=== PATIENT | male | born 1945 | race Two or more races ===

== ENCOUNTER 2022-06-13 08:20 | Inpatient (IN) | payer OTHER ==
[~2022-06-13] VITALS: Ht 167.6 cm; Wt 64.7 kg
[~2022-06-13 08:20] MED LIST: ASPI81CH59 PO; FINE10TA PO; METF-372 PO; METO-6 PO; MULT-1056 PO
[2022-06-13] MEDS ORDERED: CIPROFLOXACIN 400MG/200ML 200 ML IV ONE ×2 (10:35→11:11)
[2022-06-13] MEDS ORDERED: GLYCOPYRROLATE 0.2 MG/ML 1ML VIAL ONE (11:04)
[2022-06-13] MEDS ORDERED: LIDOCAINE 2% (LOCAL ANESTH.) PF 5ml SDV ONE (11:04)
[2022-06-13] MEDS ORDERED: PROPOFOL 10 MG/ML 20 ML IV ONE (11:04)
[2022-06-13] MEDS ORDERED: ONDANSETRON HCL 4 MG/2 ML VIAL ONE (11:04)
[2022-06-13] MEDS ORDERED: DexAMETHasone SOD PHOS 10MG/1ML VIAL INJ ONE (11:04)
[2022-06-13] MEDS ORDERED: KETOROLAC TROMETH 30 MG/ML 1ML VIAL ONE (11:04)
[2022-06-13] MEDS ORDERED: SODIUM CHLORIDE LOCK 10 ML ONE (11:25)
[2022-06-13] MEDS ORDERED: ePHEDrine SULFATE 50 MG/ML AMP ONE (11:25)
[2022-06-13] MEDS ORDERED: fentaNYL CITRATE 100 MCG/2 ML VL ONE (11:47)
[2022-06-13] MEDS ORDERED: METHYLENE BLUE 0.5% 5MG/ML 10ml AMP IV ONE (12:07)
[2022-06-13] MEDS ORDERED: NITROGLYCERIN 0.4 MG SL TAB SL PRN (12:45)
[2022-06-13] MEDS ORDERED: MORPHINE SULFATE INJ 2 MG/ml SYRG IV PRN (12:45)
[2022-06-13] MEDS ORDERED: fentaNYL CITRATE 100 MCG/2 ML VL IV PRN (13:00)
[2022-06-13] MEDS ORDERED: hydrALAZINE HCL 20 MG/ML VL IV PRN (13:00)
[2022-06-13] MEDS ORDERED: FLUMAZENIL 0.1 MG/ML INJ 10ML MDV IV PRN (13:00)
[2022-06-13] MEDS ORDERED: NALOXONE HCL 0.4 MG/ML VIAL IV PRN (13:00)
[2022-06-13] MEDS ORDERED: ONDANSETRON HCL 4 MG/2 ML VIAL IV PRN (13:00)
[2022-06-13] MEDS ORDERED: ePHEDrine SULFATE 50 MG/ML AMP IV PRN (13:00)
[2022-06-13] MEDS ORDERED: HYDROmorphone HCL 2 MG/ML VL/or syr IV PRN (13:00)
[2022-06-13] MEDS ORDERED: LABETALOL HCL 5 MG/ML 4ML SYRINGE IV PRN (13:00)
[2022-06-13 13:33] LABS: Calcium 8.6 mg/dL (8.5-10.1); Potassium 4.8 mmol/L (3.5-5.1)
[2022-06-13 13:36] LABS: BUN/Creatinine Ratio 23.2
[2022-06-13 16:51] VITALS: BP 125/59
[2022-06-13 23:17] VITALS: BP 143/77
[2022-06-14] VITALS (9 sets, daily range): BP systolic 124–192; BP diastolic 64–103
[2022-06-14 06:17] LABS: Basophils # (auto) 0 10 ^3/uL (0-0.2); Basophils % (auto) 0.1 % (0.0-2.0); Eosinophils # (auto) 0 10 ^3/uL (0-0.8); Hematocrit 40.6 % (41.0-53.0); Hemoglobin 13.3 g/dL (13.5-17.5); Lymphocytes # (auto) 0.7 10 ^3/uL (0.4-5.4); Lymphocytes % (auto) 7.5 % (10.0-50.0); Mean Corpuscular Hemoglobin 28.7 pg (28.0-32.0); Mean Corpuscular Hgb Conc. 32.7 g/dL (32.0-36.0); Mean Corpuscular Volume 87.6 fL (80.0-100.0); Monocytes # (auto) 0.8 10 ^3/uL (0-1.3); Monocytes % (auto) 9.4 % (0.0-12.0); Neutrophils # (auto) 7.4 10 ^3/uL (1.6-8.6); Red Blood Cells 4.63 10^6/uL (4.5-5.90); Red Cell Distribution Width 15.3 % (11.8-14.3); White Blood Cell 8.9 10^3/uL (4.4-10.8)
[2022-06-14 06:28] LABS: INR 1.07 (0.9-1.15)
[2022-06-14] MEDS ORDERED: MIDAZOLAM HCL 2MG/2ML 2ml VIAL (1mg/ml) ONE (12:58)
[2022-06-14] MEDS ORDERED: fentaNYL CITRATE 100 MCG/2 ML VL ONE (12:58)
[2022-06-14] MEDS ORDERED: LIDOCAINE 2%HCL (LOCAL ANESTH.) INJ 10ml MDV ONE (13:04)
[2022-06-14] MEDS ORDERED: IOHEXOL 350 MG/ML 100ML IJ ONE (13:06)
[2022-06-14] MEDS: HYDROcodone-ACET 5/325MG TAB PO PRN (22:29)
[2022-06-15 00:35] VITALS: BP 161/88
[2022-06-15] MEDS: HYDROcodone-ACET 5/325MG TAB PO PRN ×3 (04:25→22:37)
[2022-06-15 05:00] VITALS: BP 156/89
[2022-06-15 08:33] VITALS: BP 173/89
[2022-06-15] MEDS ORDERED: METOPROLOL SUCCINATE XL 50 MG TAB PO ONE (12:15)
[2022-06-15 13:00] VITALS: BP 174/93
[2022-06-15 13:45] LABS: Mean Corpuscular Hemoglobin 30.2 pg (28.0-32.0); Mean Corpuscular Hgb Conc. 34.8 g/dL (32.0-36.0); Mean Corpuscular Volume 86.7 fL (80.0-100.0); Red Blood Cells 4.96 10^6/uL (4.5-5.90); Red Cell Distribution Width 15.2 % (11.8-14.3); White Blood Cell 7.5 10^3/uL (4.4-10.8)
[2022-06-15 13:50] LABS: Basophils % (manual) 0 (0.0-2.0); Blast Cells 0; Eosinophils % (manual) 0 (0-7); Metamyelocytes % 0; Myelocytes % 0; Promyelocytes % 0; Reactive Lymphocytes 0
[2022-06-15 14:05] LABS: Albumin 3.8 g/dL (3.4-5.0); BUN/Creatinine Ratio 22.4; Calcium 9.5 mg/dL (8.5-10.1); Potassium 3.7 mmol/L (3.5-5.1)
[2022-06-15 14:08] LABS: Bilirubin, Total 0.9 mg/dL (0.2-1.0); Total Protein 7.9 g/dL (6.4-8.2)
[2022-06-15 16:33] VITALS: BP 115/71
[2022-06-15 17:45] LABS: Band Neutrophils % (manual) 1; Lymphocytes % (manual) 18 (10.0-50.0); Monocytes % (manual) 10 (0-12)
[2022-06-15 22:00] VITALS: BP 145/78
[2022-06-16 05:00] VITALS: BP 155/83
[2022-06-16 09:00] VITALS: BP 158/92
[2022-06-16] MEDS: METOPROLOL SUCCINATE XL 50 MG TAB PO SCH (11:13)
[2022-06-16 13:00] VITALS: BP 161/89
[2022-06-16] MEDS: HYDROcodone-ACET 5/325MG TAB PO PRN ×2 (14:03→21:41)
[2022-06-16] MEDS ORDERED: DEXTROSE (50%) 50ML SYRG IV PRN (16:15)
[2022-06-16 16:54] LABS: Hematocrit 38.3 % (41.0-53.0); Hemoglobin 13.2 g/dL (13.5-17.5); Mean Corpuscular Hemoglobin 29.9 pg (28.0-32.0); Mean Corpuscular Hgb Conc. 34.5 g/dL (32.0-36.0); Mean Corpuscular Volume 86.7 fL (80.0-100.0); Red Blood Cells 4.42 10^6/uL (4.5-5.90); Red Cell Distribution Width 15.6 % (11.8-14.3); White Blood Cell 6.3 10^3/uL (4.4-10.8)
[2022-06-16 17:00] VITALS: BP 143/79
[2022-06-16 17:06] LABS: Band Neutrophils % (manual) 0; Basophils % (manual) 0 (0.0-2.0); Blast Cells 0; Metamyelocytes % 0; Myelocytes % 0; Promyelocytes % 0; Reactive Lymphocytes 0
[2022-06-16 17:17] LABS: BUN/Creatinine Ratio 16.9; Calcium 8.8 mg/dL (8.5-10.1)
[2022-06-16] MEDS: ACCU-CHEK COMFORT CURVE STRIP VI SCH ×2 (17:20→21:31)
[2022-06-16] MEDS: InsuLIN REG 1unit/0.01ml Soln (100units/ml) SC SCH ×2 (17:20→21:34)
[2022-06-16 17:39] LABS: Eosinophils % (manual) 1 (0-7); Lymphocytes % (manual) 12 (10.0-50.0); Monocytes % (manual) 9 (0-12)
[2022-06-16] MEDS: metFORMIN HYDROCHLORIDE 500 MG TAB PO SCH (18:40)
[2022-06-16 22:00] VITALS: BP 140/71
[2022-06-17 05:00] VITALS: BP 141/83
[2022-06-17] MEDS: ACCU-CHEK COMFORT CURVE STRIP VI SCH ×4 (06:32→21:25)
[2022-06-17] MEDS: InsuLIN REG 1unit/0.01ml Soln (100units/ml) SC SCH ×5 (06:32→21:26)
[2022-06-17 09:32] VITALS: BP 116/71
[2022-06-17] MEDS: metFORMIN HYDROCHLORIDE 500 MG TAB PO SCH ×2 (10:51→17:55)
[2022-06-17] MEDS: METOPROLOL SUCCINATE XL 50 MG TAB PO SCH (10:52)
[2022-06-17 12:35] VITALS: BP 138/74
[2022-06-17] MEDS: HYDROcodone-ACET 5/325MG TAB PO PRN ×2 (13:50→21:52)
[2022-06-17 16:37] VITALS: BP 137/72
[2022-06-17 22:00] VITALS: BP 132/67
[2022-06-18] MEDS: HYDROcodone-ACET 5/325MG TAB PO PRN (03:51)
[2022-06-18 05:00] VITALS: BP 126/62
[2022-06-18] MEDS: InsuLIN REG 1unit/0.01ml Soln (100units/ml) SC SCH ×2 (06:45→13:10)
[2022-06-18] MEDS: ACCU-CHEK COMFORT CURVE STRIP VI SCH ×2 (06:45→12:10)
[2022-06-18 09:26] VITALS: BP 159/64
[2022-06-18] MEDS: metFORMIN HYDROCHLORIDE 500 MG TAB PO SCH (09:34)
[2022-06-18] MEDS: METOPROLOL SUCCINATE XL 50 MG TAB PO SCH (09:35)
[2022-06-18 12:35] VITALS: BP 139/67
[2022-06-18] MEDS ORDERED: SODIUM CHLORIDE 0.9% 1,000 ML IV ONE (13:45)
[2022-06-18 16:27] VITALS: BP 159/64
== END 2022-06-18 17:15 | disposition home health service (06) | DRG 669 ==
LOC: SUR 08:20 → OVERFLOW 12:42 → EAST 16:07
PROVIDERS: ADMIT Urology; ATTEND Urology
PROC: 0TBB8ZZ Excision of Bladder, Via Natural or Artificial Opening Endoscopic (ICD-10-PCS; principal; 2022-06-13 11:13)
PROC: 0T773DZ Dilation of Left Ureter with Intraluminal Device, Percutaneous Approach (ICD-10-PCS; 2022-06-14)
DX: C67.9 Malignant neoplasm of bladder, unspecified (principal); N13.30 Unspecified hydronephrosis; R31.0 Gross hematuria; N18.9 Chronic kidney disease, unspecified; R79.89 Other specified abnormal findings of blood chemistry; Z20.822 Contact with and (suspected) exposure to COVID-19; N20.0 Calculus of kidney
CPT/HCPCS: 36415; 50432; 74176; 74425; 76942; 80048; 80053; 82962; 85007; 85025; 85027; 85610; 85730; 99152; 99153; C2625; G0378; J1100; J1815; J1885; J2001; J2250; J2405; J2704

== ENCOUNTER 2022-07-20 09:29 | Inpatient (IN) | payer OTHER ==
[~2022-07-20] VITALS: Ht 165.1 cm; Wt 65.0 kg
[~2022-07-20 09:29] MED LIST changes: -ASPI81CH59 PO
[2022-07-20 11:27] LABS: Hematocrit 34.3 % (41.0-53.0); Hemoglobin 11.3 g/dL (13.5-17.5); Mean Corpuscular Hgb Conc. 32.9 g/dL (32.0-36.0); Mean Corpuscular Volume 88.2 fL (80.0-100.0); Red Blood Cells 3.88 10^6/uL (4.5-5.90); Red Cell Distribution Width 15.9 % (11.8-14.3)
[2022-07-20 11:33] LABS: Basophils % (manual) 0 (0.0-2.0); Blast Cells 0; Metamyelocytes % 0; Myelocytes % 0; Promyelocytes % 0; Reactive Lymphocytes 0
[2022-07-20 11:53] LABS: Calcium 8.6 mg/dL (8.5-10.1); Potassium 4.9 mmol/L (3.5-5.1)
[2022-07-20 11:59] LABS: Albumin 3.6 g/dL (3.4-5.0); BUN/Creatinine Ratio 18.1; Bilirubin, Total 0.4 mg/dL (0.2-1.0); Total Protein 7.4 g/dL (6.4-8.2)
[2022-07-20 12:01] LABS: Band Neutrophils % (manual) 13; Eosinophils % (manual) 1 (0-7); Lymphocytes % (manual) 23 (10.0-50.0); Monocytes % (manual) 11 (0-12)
[2022-07-20] MEDS ORDERED: NITROGLYCERIN 0.4 MG SL TAB SL PRN (16:15)
[2022-07-20] MEDS ORDERED: MORPHINE SULFATE INJ 2 MG/ml SYRG IV PRN (16:15)
[2022-07-20] MEDS ORDERED: SODIUM CHLORIDE 0.9% 1,000 ML IV SCH (16:30)
[2022-07-20] MEDS: SODIUM CHLORIDE 0.9% 1,000 ML IV SCH (16:33)
[2022-07-20] MEDS ORDERED: OXYCODONE W/ ACETAMINOPHEN 5/325MG TABLET PO PRN (21:00)
[2022-07-20] MEDS ORDERED: ROSU1TAB15 PO (22:41)
[2022-07-21 05:00] VITALS: BP 134/69
[2022-07-21 06:37] LABS: Hematocrit 33.3 % (41.0-53.0); Red Blood Cells 3.78 10^6/uL (4.5-5.90); Red Cell Distribution Width 15.9 % (11.8-14.3); White Blood Cell 3.9 10^3/uL (4.4-10.8)
[2022-07-21 06:47] LABS: Basophils % (manual) 0 (0.0-2.0); Blast Cells 0; Metamyelocytes % 0; Myelocytes % 0; Promyelocytes % 0; Reactive Lymphocytes 0
[2022-07-21] MEDS: SODIUM CHLORIDE 0.9% 1,000 ML IV SCH ×3 (07:05→08:51)
[2022-07-21 07:21] LABS: Potassium 4.4 mmol/L (3.5-5.1)
[2022-07-21 07:26] LABS: BUN/Creatinine Ratio 19.5; Calcium 8.3 mg/dL (8.5-10.1)
[2022-07-21 08:00] VITALS: BP 160/72
[2022-07-21 08:47] VITALS: BP 160/72
[2022-07-21 09:16] LABS: Band Neutrophils % (manual) 6; Lymphocytes % (manual) 18 (10.0-50.0)
[2022-07-21 09:17] LABS: Eosinophils % (manual) 2 (0-7); Monocytes % (manual) 22 (0-12)
[2022-07-21] MEDS ORDERED: POLYETHYLENE GLYCOL 17 GM PWDR PO SCH (10:00)
[2022-07-21] MEDS ORDERED: DOCUSATE SOD 100 MG CAP PO SCH (10:00)
[2022-07-21] MEDS ORDERED: DEXTROSE (50%) 50ML SYRG IV PRN (10:15)
[2022-07-21] MEDS: ACCU-CHEK COMFORT CURVE STRIP VI SCH ×2 (11:30→16:34)
[2022-07-21] MEDS: InsuLIN REG 1unit/0.01ml Soln (100units/ml) SC SCH ×2 (11:30→16:34)
[2022-07-21 13:00] VITALS: BP 153/75
[2022-07-21 16:51] VITALS: BP 169/92
[2022-07-21 17:06] VITALS: BP 144/88
[2022-07-21] MEDS ORDERED: SENNA 8.6 MG TAB PO SCH (22:00)
[2022-07-22] MEDS ORDERED: METOPROLOL SUCCINATE XL 50 MG TAB PO SCH (10:00)
[2022-07-22] MEDS ORDERED: MULTIPLE VITAMIN TAB PO SCH (10:00)
== END 2022-07-21 17:30 | disposition home health service (06) | DRG 699 ==
LOC: ER 09:29 → OVERFLOW 16:12 → CENTRAL 21:50
PROVIDERS: ADMIT Internal Medicine; ATTEND Internal Medicine
DX: T83.022A Displacement of nephrostomy catheter, initial encounter (principal); N17.9 Acute kidney failure, unspecified; Y83.8 Other surgical procedures as the cause of abnormal reaction of the patient, or of later complication, without mention of misadventure at the time of the procedure; Z20.822 Contact with and (suspected) exposure to COVID-19; E11.22 Type 2 diabetes mellitus with diabetic chronic kidney disease; F17.210 Nicotine dependence, cigarettes, uncomplicated; I12.9 Hypertensive chronic kidney disease with stage 1 through stage 4 chronic kidney disease, or unspecified chronic kidney disease; K59.00 Constipation, unspecified; N18.32 Chronic kidney disease, stage 3b; N40.0 Benign prostatic hyperplasia without lower urinary tract symptoms; Z82.49 Family history of ischemic heart disease and other diseases of the circulatory system; Y92.89 Other specified places as the place of occurrence of the external cause; Z83.3 Family history of diabetes mellitus; Z85.51 Personal history of malignant neoplasm of bladder; Z90.79 Acquired absence of other genital organ(s)
CPT/HCPCS: 36415; 74176; 76775; 80048; 80053; 82962; 85007; 85027; 87426; G0378

== ENCOUNTER 2022-10-24 06:21 | Inpatient (IN) | payer OTHER ==
[~2022-10-24] VITALS: Ht 167.6 cm; Wt 69.1 kg
[~2022-10-24 06:21] MED LIST changes: +ROSU1TAB15 PO
[2022-10-24] MEDS ORDERED: PROPOFOL 10 MG/ML 20 ML IV ONE ×2 (06:54→09:21)
[2022-10-24] MEDS ORDERED: ONDANSETRON HCL 4 MG/2 ML VIAL ONE ×2 (06:55→08:01)
[2022-10-24] MEDS ORDERED: KETOROLAC TROMETH 30 MG/ML 1ML VIAL ONE (06:55)
[2022-10-24] MEDS ORDERED: LIDOCAINE 2% (LOCAL ANESTH.) PF 5ml SDV ONE ×2 (06:55→08:01)
[2022-10-24] MEDS ORDERED: GLYCOPYRROLATE 0.2 MG/ML 1ML VIAL ONE ×2 (06:55→09:10)
[2022-10-24] MEDS ORDERED: DexAMETHasone SOD PHOS 10MG/1ML VIAL INJ ONE (06:55)
[2022-10-24] MEDS ORDERED: fentaNYL CITRATE 100 MCG/2 ML VL ONE ×2 (06:57→07:41)
[2022-10-24] MEDS ORDERED: mitoMYcin 40 MG in STERILE WATER 60 ML IS ONE (07:00)
[2022-10-24] MEDS ORDERED: MITOMYCIN IS ONE ×4 (07:30)
[2022-10-24] MEDS ORDERED: STERILE WATER IS ONE ×4 (07:30)
[2022-10-24] MEDS ORDERED: MIDAZOLAM HCL 2MG/2ML 2ml VIAL (1mg/ml) ONE (07:41)
[2022-10-24] MEDS ORDERED: CIPROFLOXACIN 400MG/200ML 200 ML IV ONE (08:02)
[2022-10-24] MEDS ORDERED: ONDANSETRON HCL 4 MG/2 ML VIAL IV PRN (09:00)
[2022-10-24] MEDS ORDERED: HYDROmorphone HCL 2 MG/ML VL/or syr IV PRN ×2 (09:00)
[2022-10-24] MEDS ORDERED: NEOSTIGMINE 1 MG/ML INJ (10mg/10ML VIAL) ONE (09:10)
[2022-10-24] MEDS ORDERED: ALBUTEROL SULF 2.5 MG/0.5ML(0.5%) NEB SOLN NEB ONE (11:30)
[2022-10-24] MEDS ORDERED: ALBUTEROL SULF 2.5 MG/0.5ML(0.5%) NEB SOLN ONE (12:09)
[2022-10-24 17:42] VITALS: BP 129/56
[2022-10-24] MEDS ORDERED: ACETAMINOPHEN 325 MG TAB PO PRN (17:45)
[2022-10-24 20:00] VITALS: BP 158/62
[2022-10-24] MEDS: MORPHINE SULFATE INJ 2 MG/ml SYRG IV PRN (21:17)
[2022-10-24 22:00] VITALS: BP 158/62
[2022-10-25 05:00] VITALS: BP 105/42
[2022-10-25 09:00] VITALS: BP 98/50
[2022-10-25 11:29] LABS: Hematocrit 25.6 % (41.0-53.0); Hemoglobin 8.5 g/dL (13.5-17.5); Mean Corpuscular Hemoglobin 29.4 pg (28.0-32.0); Mean Corpuscular Hgb Conc. 33.3 g/dL (32.0-36.0); Mean Corpuscular Volume 88.4 fL (80.0-100.0); Red Blood Cells 2.89 10^6/uL (4.5-5.90)
[2022-10-25 11:33] LABS: Basophils % (manual) 0 (0.0-2.0); Blast Cells 0; Eosinophils % (manual) 0 (0-7); Promyelocytes % 0; Reactive Lymphocytes 0
[2022-10-25 11:40] LABS: Calcium 8.3 mg/dL (8.5-10.1); Potassium 4.8 mmol/L (3.5-5.1)
[2022-10-25 11:42] LABS: BUN/Creatinine Ratio 17.5 (10.0-20.0)
[2022-10-25 11:49] LABS: Band Neutrophils % (manual) 2; Lymphocytes % (manual) 13 (10.0-50.0); Metamyelocytes % 2; Monocytes % (manual) 16 (0-12); Myelocytes % 1
[2022-10-25 13:00] VITALS: BP 117/52
[2022-10-25] MEDS ORDERED: BISACODYL 10 MG RECT SUPP PR PRN (14:15)
[2022-10-25] MEDS ORDERED: DEXTROSE (50%) 50ML SYRG IV PRN (14:15)
[2022-10-25 17:00] VITALS: BP 115/57
[2022-10-25] MEDS: InsuLIN REG 1unit/0.01ml Soln (100units/ml) SC SCH (17:00)
[2022-10-25] MEDS: ACCU-CHEK COMFORT CURVE STRIP VI SCH (17:08)
[2022-10-25] MEDS: SENNA 8.6 MG TAB PO SCH (21:53)
[2022-10-25 22:00] VITALS: BP 90/56
[2022-10-25] MEDS ORDERED: metFORMIN HYDROCHLORIDE 500 MG TAB PO ONE ×2 (22:15→22:30)
[2022-10-26] MEDS: ACCU-CHEK COMFORT CURVE STRIP VI SCH ×5 (00:12→23:56)
[2022-10-26] MEDS: InsuLIN REG 1unit/0.01ml Soln (100units/ml) SC SCH ×4 (00:12→17:00)
[2022-10-26] MEDS: SODIUM CHLORIDE 0.9% 1,000 ML IV SCH ×2 (00:53→09:35)
[2022-10-26 05:03] VITALS: BP 127/63
[2022-10-26 05:38] LABS: Mean Corpuscular Hemoglobin 29.9 pg (28.0-32.0); Red Blood Cells 2.67 10^6/uL (4.5-5.90); White Blood Cell 5.8 10^3/uL (4.4-10.8)
[2022-10-26 05:40] LABS: Hematocrit 23.7 % (41.0-53.0); Mean Corpuscular Hgb Conc. 33.7 g/dL (32.0-36.0); Mean Corpuscular Volume 88.7 fL (80.0-100.0); Red Cell Distribution Width 16.3 % (11.8-14.3)
[2022-10-26 05:53] LABS: Potassium 3.8 mmol/L (3.5-5.1)
[2022-10-26 05:58] LABS: Basophils % (manual) 0 (0.0-2.0); Blast Cells 0; Metamyelocytes % 0; Myelocytes % 0; Promyelocytes % 0; Reactive Lymphocytes 0
[2022-10-26 06:01] LABS: BUN/Creatinine Ratio 15.7 (10.0-20.0); Calcium 8.4 mg/dL (8.5-10.1)
[2022-10-26 06:48] LABS: Band Neutrophils % (manual) 2; Eosinophils % (manual) 1 (0-7); Lymphocytes % (manual) 19 (10.0-50.0); Monocytes % (manual) 16 (0-12)
[2022-10-26 09:00] VITALS: BP_SYST 121; BP_SYST 127; BP_DIAS 63
[2022-10-26 13:00] VITALS: BP 122/59
[2022-10-26 16:45] VITALS: BP 119/62
[2022-10-26] MEDS ORDERED: POLYETHYLENE GLYCOL 17 GM PWDR PO PRN (19:00)
[2022-10-26 22:00] VITALS: BP 129/55
[2022-10-26] MEDS: SENNA 8.6 MG TAB PO SCH (23:56)
[2022-10-27] MEDS: SODIUM CHLORIDE 0.9% 1,000 ML IV SCH ×2 (00:02→12:15)
[2022-10-27] MEDS: InsuLIN REG 1unit/0.01ml Soln (100units/ml) SC SCH ×4 (00:03→17:14)
[2022-10-27] MEDS: MORPHINE SULFATE INJ 2 MG/ml SYRG IV PRN (00:37)
[2022-10-27 05:00] VITALS: BP 133/60
[2022-10-27 05:33] LABS: Hematocrit 23.4 % (41.0-53.0); Hemoglobin 7.9 g/dL (13.5-17.5); Mean Corpuscular Hemoglobin 29.8 pg (28.0-32.0); Mean Corpuscular Volume 87.8 fL (80.0-100.0); Red Blood Cells 2.66 10^6/uL (4.5-5.90); Red Cell Distribution Width 15.8 % (11.8-14.3); White Blood Cell 5.1 10^3/uL (4.4-10.8)
[2022-10-27 05:39] LABS: Potassium 3.8 mmol/L (3.5-5.1)
[2022-10-27 05:48] LABS: BUN/Creatinine Ratio 15.3 (10.0-20.0); Calcium 8.5 mg/dL (8.5-10.1)
[2022-10-27 05:51] LABS: Band Neutrophils % (manual) 0; Basophils % (manual) 0 (0.0-2.0); Blast Cells 0; Eosinophils % (manual) 0 (0-7); Metamyelocytes % 0; Myelocytes % 0; Promyelocytes % 0; Reactive Lymphocytes 0
[2022-10-27] MEDS: ACCU-CHEK COMFORT CURVE STRIP VI SCH ×3 (06:52→17:00)
[2022-10-27 07:52] LABS: Lymphocytes % (manual) 23 (10.0-50.0); Monocytes % (manual) 12 (0-12)
[2022-10-27 09:00] VITALS: BP 136/76
[2022-10-27 13:00] VITALS: BP 137/72
[2022-10-27 17:00] VITALS: BP 150/72
[2022-10-27 17:26] VITALS: BP 137/72
[2022-10-27] MEDS ORDERED: ROCURONIUM 10MG/ML 10ML VIAL IV ONE (18:57)
== END 2022-10-27 18:58 | disposition home health service (06) | DRG 669 ==
LOC: SUR 06:21 → OVERFLOW 15:50 → CENTRAL 16:41
PROVIDERS: ADMIT Urology; ATTEND Urology
PROC: 0TBC8ZZ Excision of Bladder Neck, Via Natural or Artificial Opening Endoscopic (ICD-10-PCS; principal; 2022-10-24 08:06)
DX: D49.4 Neoplasm of unspecified behavior of bladder (principal); N17.9 Acute kidney failure, unspecified; N35.919 Unspecified urethral stricture, male, unspecified site; E11.22 Type 2 diabetes mellitus with diabetic chronic kidney disease; N18.9 Chronic kidney disease, unspecified; R31.0 Gross hematuria; Z85.51 Personal history of malignant neoplasm of bladder; D63.8 Anemia in other chronic diseases classified elsewhere; D53.9 Nutritional anemia, unspecified
CPT/HCPCS: 36415; 76775; 80048; 82962; 85007; 85027; 94640; 97163; G0378; J1100; J1815; J1885; J2001; J2250; J2405; J2704; J9280

== ENCOUNTER 2022-12-02 12:59 | Inpatient (IN) | payer OTHER ==
[~2022-12-02] VITALS: Ht 172.7 cm; Wt 63.0 kg
[2022-12-02] VITALS (16 sets, daily range): BP systolic 118–154; BP diastolic 62–78; PULSE 48–87; RESP 16–22; TEMP 36.2; O2SAT 97–100
[2022-12-02] MEDS ORDERED: ETOMIDATE (2MG/ML) 20ML VIAL IV ONE ×2 (13:08→13:30)
[2022-12-02] MEDS ORDERED: MIDAZOLAM DRIP 50 mg/50mL 50 ML IV ONE (13:09)
[2022-12-02] MEDS ORDERED: SUCCINYLCHOLINE CHLORIDE 20 MG/ML 10ML VIAL IV ONE ×2 (13:09→13:30)
[2022-12-02] MEDS ORDERED: NOREPINEPHRINE 8 MG/250ML KIT 250 ML IV ONE (13:09)
[2022-12-02] MEDS ORDERED: PROPOFOL 0 ML IV ONE (13:48)
[2022-12-02] MEDS ORDERED: DOPamine 1600MCG/ML D5W 250 ML IV ONE (13:48)
[2022-12-02] MEDS: DOPamine 1600MCG/ML D5W 250 ML IV SCH (13:59)
[2022-12-02 14:16] LABS: INR 1.15 (0.9-1.15); Partial Thromboplastin Time 32.7 SEC (24.5-34.5)
[2022-12-02 14:17] LABS: Albumin 3.7 g/dL (3.4-5.0); Calcium 8.4 mg/dL (8.5-10.1); Magnesium 2.5 mg/dL (1.6-2.6); Potassium 4.3 mmol/L (3.5-5.1)
[2022-12-02 14:20] LABS: BUN/Creatinine Ratio 13.2 (10.0-20.0); Bilirubin, Total 0.8 mg/dL (0.2-1.0); Total Protein 7.8 g/dL (6.4-8.2)
[2022-12-02 14:23] LABS: Base Excess -8.4 mmol/L (-2.0-2.0)
[2022-12-02] MEDS ORDERED: FUROSEMIDE 40 MG/4 ML VIAL IV ONE (15:15)
[2022-12-02 16:52] LABS: Hematocrit 34.4 % (41.0-53.0); Hemoglobin 10.8 g/dL (13.5-17.5); Mean Corpuscular Hemoglobin 28.6 pg (28.0-32.0); Mean Corpuscular Hgb Conc. 31.3 g/dL (32.0-36.0); Mean Corpuscular Volume 91.1 fL (80.0-100.0); Red Blood Cells 3.77 10^6/uL (4.5-5.90); Red Cell Distribution Width 18.5 % (11.8-14.3); White Blood Cell 5.8 10^3/uL (4.4-10.8)
[2022-12-02 17:02] LABS: Basophils % (manual) 0 (0.0-2.0); Blast Cells 0; Eosinophils % (manual) 0 (0-7); Metamyelocytes % 0; Myelocytes % 0; Promyelocytes % 0; Reactive Lymphocytes 0
[2022-12-02 18:35] LABS: Urine Bacteria NONE SEEN /hpf (None Seen); Urine Blood 3+ /uL (Negative); Urine Clarity HAZY (Clear); Urine Color Orange (Yellow); Urine Protein, UAD 3+ (Negative); Urine Specific Gravity 1.015 (1.001-1.035); Urine Urobilinogen Normal (Negative); Urine WBC 338 /hpf (0 - 3)
[2022-12-02] MEDS ORDERED: MORPHINE SULFATE INJ 2 MG/ml SYRG IV PRN (18:45)
[2022-12-02] MEDS ORDERED: NITROGLYCERIN 0.4 MG SL TAB SL PRN (18:45)
[2022-12-02 18:53] LABS: Anisocytosis Slight; Band Neutrophils % (manual) 5; Lymphocytes % (manual) 13 (10.0-50.0); Monocytes % (manual) 15 (0-12); Platelet Estimate Decreased
[2022-12-02 18:54] LABS: Large Platelets FEW
[2022-12-02] MEDS: PROPOFOL 100 ML IV SCH (19:58)
[2022-12-02] MEDS ORDERED: SODIUM BICARBONATE 8.4 % INJ 50ML VIAL IV ONE (20:15)
[2022-12-02 21:28] LABS: COVID19 ANTIGEN SOFIA FIA NEGATIVE (NEGATIVE); Rapid Influenza A Negative (Negative); Rapid Influenza B Negative (Negative)
[2022-12-03] VITALS (108 sets, daily range): BP systolic 83–216; BP diastolic 38–172; PULSE 51–157; RESP 14–39; TEMP 97.5–100.4; O2SAT 92–100
[2022-12-03] MEDS: MIDAZOLAM DRIP 50 mg/50mL 50 ML IV SCH ×6 (00:07→20:58)
[2022-12-03 04:16] LABS: Basophils # (auto) 0 10 ^3/uL (0-0.2); Eosinophils # (auto) 0 10 ^3/uL (0-0.8); Lymphocytes # (auto) 0.7 10 ^3/uL (0.4-5.4); Monocytes # (auto) 0.9 10 ^3/uL (0-1.3); White Blood Cell 5.3 10^3/uL (4.4-10.8)
[2022-12-03 04:19] LABS: Basophils % (auto) 0.2 % (0.0-2.0); Eosinophils % (auto) 0.2 % (0.0-7.0); Hematocrit 33.5 % (41.0-53.0); Lymphocytes % (auto) 13.5 % (10.0-50.0); Mean Corpuscular Hemoglobin 29.2 pg (28.0-32.0); Mean Corpuscular Volume 88.5 fL (80.0-100.0); Monocytes % (auto) 17.2 % (0.0-12.0); Neutrophils # (auto) 3.6 10 ^3/uL (1.6-8.6); Neutrophils % (auto) 68.9 % (37.0-80.0); Nucleated Red Blood Cells % 0.1 %; Red Blood Cells 3.78 10^6/uL (4.5-5.90); Red Cell Distribution Width 17.9 % (11.8-14.3)
[2022-12-03 04:34] LABS: Albumin 3.4 g/dL (3.4-5.0); Calcium 8.9 mg/dL (8.5-10.1); Potassium 3.6 mmol/L (3.5-5.1)
[2022-12-03 04:39] LABS: BUN/Creatinine Ratio 15.2 (10.0-20.0); Bilirubin, Total 1.1 mg/dL (0.2-1.0); Total Protein 7.2 g/dL (6.4-8.2)
[2022-12-03] MEDS: DOPamine 1600MCG/ML D5W 250 ML IV SCH ×2 (07:32→23:00)
[2022-12-03 07:39] LABS: Base Excess 1.7 mmol/L (-2.0-2.0)
[2022-12-03] MEDS: cefTRIAXone 1GM/50ML D5W 50 ML IV SCH (09:58)
[2022-12-03] MEDS ORDERED: AZITHROMYCIN 500MG/ 250ML 250 ML IV SCH (10:00)
[2022-12-03] MEDS: PROPOFOL 100 ML IV SCH (16:08)
[2022-12-03 16:40] LABS: Urine Bacteria FEW /hpf (None Seen); Urine Blood 3+ /uL (Negative); Urine Clarity CLOUDY (Clear); Urine Color Yellow (Yellow); Urine Hyaline Cast FEW /lpf (0 - 2); Urine Mucus FEW (None Seen); Urine Protein, UAD 2+ (Negative); Urine Specific Gravity 1.016 (1.001-1.035); Urine Urobilinogen Normal (Negative); Urine WBC 1197 /hpf (0 - 3); Urine WBC Clumps PRESENT /hpf (None Seen)
[2022-12-03] MEDS ORDERED: dilTIAZem 25 MG/5 ML VIAL IV ONE (18:00)
[2022-12-03] MEDS ORDERED: DIGOXIN 0.25 MG TAB PO ONE ×2 (18:00→19:00)
[2022-12-03] MEDS ORDERED: AMIODARONE HCL 150 MG in D5W 5% 100 ML IV ONE (18:00)
[2022-12-03] MEDS ORDERED: AMIODARONE 450mg/250ml AE 250 ML IV SCH (18:15)
[2022-12-03] MEDS: PHENYLEPHRINE IV 250 ML IV SCH (18:45)
[2022-12-03] MEDS: DOXYCYCLINE 100MG/250ML 250 ML IV SCH (23:28)
[2022-12-03] MEDS: AMIODARONE 450mg/250ml AE 250 ML IV SCH (23:29)
[2022-12-04] VITALS (105 sets, daily range): BP systolic 76–171; BP diastolic 35–120; PULSE 56–121; RESP 18–20; TEMP 96.4–98.2; O2SAT 94–100
[2022-12-04] MEDS: PHENYLEPHRINE IV 250 ML IV SCH ×3 (00:32→17:13)
[2022-12-04] MEDS: MIDAZOLAM DRIP 50 mg/50mL 50 ML IV SCH ×5 (00:36→22:24)
[2022-12-04] MEDS ORDERED: ATROPINE SULF 1 MG/10ml SYR ONE (00:42)
[2022-12-04] MEDS: PROPOFOL 100 ML IV SCH ×4 (02:46→22:23)
[2022-12-04] MEDS: DOPamine 1600MCG/ML D5W 250 ML IV SCH (03:16)
[2022-12-04 04:17] LABS: Mean Corpuscular Hemoglobin 29.5 pg (28.0-32.0); Mean Corpuscular Volume 88.7 fL (80.0-100.0); Red Cell Distribution Width 17.9 % (11.8-14.3)
[2022-12-04 04:21] LABS: Hematocrit 34.8 % (41.0-53.0); Hemoglobin 11.6 g/dL (13.5-17.5); Mean Corpuscular Hgb Conc. 33.3 g/dL (32.0-36.0); Red Blood Cells 3.92 10^6/uL (4.5-5.90); White Blood Cell 8.4 10^3/uL (4.4-10.8)
[2022-12-04 04:31] LABS: Basophils % (manual) 0 (0.0-2.0); Blast Cells 0; Eosinophils % (manual) 0 (0-7); Metamyelocytes % 0; Myelocytes % 0; Promyelocytes % 0; Reactive Lymphocytes 0
[2022-12-04 04:43] LABS: Potassium 3.3 mmol/L (3.5-5.1)
[2022-12-04 04:46] LABS: Albumin 2.9 g/dL (3.4-5.0); BUN/Creatinine Ratio 14.6 (10.0-20.0); Calcium 8.8 mg/dL (8.5-10.1)
[2022-12-04 04:50] LABS: Bilirubin, Total 0.6 mg/dL (0.2-1.0)
[2022-12-04 05:42] LABS: Band Neutrophils % (manual) 8; Lymphocytes % (manual) 15 (10.0-50.0); Monocytes % (manual) 17 (0-12)
[2022-12-04 05:43] LABS: Anisocytosis Slight; Large Platelets FEW; Ovalocytes FEW; Platelet Estimate Decreased
[2022-12-04] MEDS: DOXYCYCLINE 100MG/250ML 250 ML IV SCH ×2 (06:30→17:30)
[2022-12-04 09:28] LABS: Base Excess 0.2 mmol/L (-2.0-2.0)
[2022-12-04] MEDS: cefTRIAXone 1GM/50ML D5W 50 ML IV SCH (09:34)
[2022-12-04] MEDS ORDERED: DIGOXIN 0.125 MG TAB PO SCH (10:00)
[2022-12-04] MEDS: AMIODARONE 450mg/250ml AE 250 ML IV SCH (15:15)
[2022-12-04] MEDS ORDERED: PANTOPRAZOLE 40 MG/10 ML VIAL INJ IV ONE (18:00)
[2022-12-05] VITALS (110 sets, daily range): BP systolic 79–165; BP diastolic 35–75; PULSE 49–71; RESP 13–24; TEMP 96.6–98.8; O2SAT 90–100
[2022-12-05] MEDS: MIDAZOLAM DRIP 50 mg/50mL 50 ML IV SCH ×4 (02:20→18:39)
[2022-12-05 04:06] LABS: Basophils # (auto) 0 10 ^3/uL (0-0.2); Basophils % (auto) 0.4 % (0.0-2.0); Eosinophils # (auto) 0 10 ^3/uL (0-0.8); Hemoglobin 9.6 g/dL (13.5-17.5); Lymphocytes # (auto) 0.6 10 ^3/uL (0.4-5.4); Nucleated Red Blood Cells % 0.1 %; White Blood Cell 5.7 10^3/uL (4.4-10.8)
[2022-12-05 04:09] LABS: Eosinophils % (auto) 0.3 % (0.0-7.0); Hematocrit 28.5 % (41.0-53.0); Mean Corpuscular Hemoglobin 29.9 pg (28.0-32.0); Mean Corpuscular Hgb Conc. 33.6 g/dL (32.0-36.0); Mean Corpuscular Volume 88.8 fL (80.0-100.0); Neutrophils % (auto) 70.3 % (37.0-80.0); Red Blood Cells 3.21 10^6/uL (4.5-5.90); Red Cell Distribution Width 18.1 % (11.8-14.3)
[2022-12-05 04:17] LABS: Calcium 7.6 mg/dL (8.5-10.1); Potassium 3.1 mmol/L (3.5-5.1)
[2022-12-05 04:21] LABS: BUN/Creatinine Ratio 14.8 (10.0-20.0)
[2022-12-05] MEDS: DOPamine 1600MCG/ML D5W 250 ML IV SCH (05:10)
[2022-12-05] MEDS: PHENYLEPHRINE IV 250 ML IV SCH ×2 (06:00→11:40)
[2022-12-05] MEDS: DOXYCYCLINE 100MG/250ML 250 ML IV SCH ×2 (06:39→18:07)
[2022-12-05] MEDS: PROPOFOL 100 ML IV SCH ×3 (06:50→18:41)
[2022-12-05 07:52] LABS: Base Excess -2.1 mmol/L (-2.0-2.0)
[2022-12-05] MEDS: cefTRIAXone 1GM/50ML D5W 50 ML IV SCH (09:43)
[2022-12-05] MEDS: PANTOPRAZOLE 40 MG/10 ML VIAL INJ IV SCH (09:43)
[2022-12-05 10:10] LABS: INR 1.13 (0.9-1.15); Partial Thromboplastin Time 38.4 SEC (24.5-34.5); Prothrombin Time 11.8 sec (9.3-11.8)
[2022-12-05] MEDS: POTASSIUM CHL 20MEQ/100ML 100 ML IV SCH ×4 (11:58→17:30)
[2022-12-05] MEDS ORDERED: LIDOCAINE 2%HCL (LOCAL ANESTH.) INJ 20ML MDV ONE (15:13)
[2022-12-05] MEDS ORDERED: VANCOMYCIN 1GM/250ML 250 ML IV ONE (15:25)
[2022-12-05] MEDS ORDERED: VANCOMYCIN HCL 1000 MG VL ONE (15:25)
[2022-12-06] VITALS (110 sets, daily range): BP systolic 99–154; BP diastolic 42–63; PULSE 65–68; RESP 13–30; TEMP 97.3–99.3; O2SAT 95–100
[2022-12-06] MEDS: PROPOFOL 100 ML IV SCH ×4 (00:12→17:55)
[2022-12-06] MEDS: MIDAZOLAM DRIP 50 mg/50mL 50 ML IV SCH ×4 (00:29→17:56)
[2022-12-06] MEDS: PHENYLEPHRINE IV 250 ML IV SCH ×4 (01:19→21:00)
[2022-12-06 03:47] LABS: Calcium 8.5 mg/dL (8.5-10.1); Potassium 3.8 mmol/L (3.5-5.1)
[2022-12-06 03:50] LABS: BUN/Creatinine Ratio 13.1 (10.0-20.0)
[2022-12-06 03:56] LABS: INR 1.11 (0.9-1.15); Partial Thromboplastin Time 39.2 SEC (24.5-34.5); Prothrombin Time 11.6 sec (9.3-11.8)
[2022-12-06] MEDS: DOPamine 1600MCG/ML D5W 250 ML IV SCH ×2 (04:21→22:08)
[2022-12-06] MEDS: DOXYCYCLINE 100MG/250ML 250 ML IV SCH ×2 (06:00→17:56)
[2022-12-06 08:11] LABS: Base Excess -3.9 mmol/L (-2.0-2.0)
[2022-12-06 08:27] LABS: Hematocrit 31.6 % (41.0-53.0); Hemoglobin 10.2 g/dL (13.5-17.5); Mean Corpuscular Hgb Conc. 32.3 g/dL (32.0-36.0); Mean Corpuscular Volume 89.9 fL (80.0-100.0); Red Blood Cells 3.52 10^6/uL (4.5-5.90); Red Cell Distribution Width 18.1 % (11.8-14.3)
[2022-12-06 08:30] LABS: Basophils % (manual) 0 (0.0-2.0); Metamyelocytes % 0; Myelocytes % 0
[2022-12-06 08:31] LABS: Blast Cells 0; Promyelocytes % 0; Reactive Lymphocytes 0
[2022-12-06] MEDS: PANTOPRAZOLE 40 MG/10 ML VIAL INJ IV SCH (09:39)
[2022-12-06] MEDS: cefTRIAXone 1GM/50ML D5W 50 ML IV SCH (09:39)
[2022-12-06 09:56] LABS: Anisocytosis Slight; Band Neutrophils % (manual) 12; Eosinophils % (manual) 1 (0-7); Lymphocytes % (manual) 11 (10.0-50.0); Monocytes % (manual) 14 (0-12)
[2022-12-06 09:57] LABS: Platelet Estimate Decreased
[2022-12-06] MEDS: MIDODRINE HCL 10 MG TAB PO SCH ×2 (11:33→18:00)
[2022-12-06] MEDS: ALBUMIN 25% 100 ML IV SCH ×2 (11:34→21:38)
[2022-12-07] VITALS (106 sets, daily range): BP systolic 96–188; BP diastolic 42–84; PULSE 65–100; RESP 17–35; TEMP 97.9–98.6; O2SAT 95–100
[2022-12-07] MEDS: PROPOFOL 100 ML IV SCH ×3 (02:29→23:12)
[2022-12-07] MEDS: MIDAZOLAM DRIP 50 mg/50mL 50 ML IV SCH (02:53)
[2022-12-07 03:42] LABS: Basophils # (auto) 0 10 ^3/uL (0-0.2); Eosinophils # (auto) 0 10 ^3/uL (0-0.8); Eosinophils % (auto) 0.7 % (0.0-7.0); Hematocrit 27.3 % (41.0-53.0); Lymphocytes # (auto) 0.7 10 ^3/uL (0.4-5.4); Monocytes # (auto) 0.7 10 ^3/uL (0-1.3)
[2022-12-07 03:45] LABS: Basophils % (auto) 0.3 % (0.0-2.0); Hemoglobin 8.8 g/dL (13.5-17.5); Lymphocytes % (auto) 16.8 % (10.0-50.0); Mean Corpuscular Hemoglobin 28.7 pg (28.0-32.0); Mean Corpuscular Hgb Conc. 32.3 g/dL (32.0-36.0); Mean Corpuscular Volume 88.8 fL (80.0-100.0); Monocytes % (auto) 16.3 % (0.0-12.0); Neutrophils # (auto) 2.8 10 ^3/uL (1.6-8.6); Neutrophils % (auto) 65.9 % (37.0-80.0); Red Blood Cells 3.08 10^6/uL (4.5-5.90); Red Cell Distribution Width 17.7 % (11.8-14.3); White Blood Cell 4.2 10^3/uL (4.4-10.8)
[2022-12-07 04:20] LABS: BUN/Creatinine Ratio 11.9 (10.0-20.0); Calcium 8.4 mg/dL (8.5-10.1); Potassium 3.5 mmol/L (3.5-5.1)
[2022-12-07 04:24] LABS: Bilirubin, Total 0.6 mg/dL (0.2-1.0); Total Protein 6.4 g/dL (6.4-8.2)
[2022-12-07] MEDS: PHENYLEPHRINE IV 250 ML IV SCH ×3 (05:20→22:00)
[2022-12-07] MEDS: MIDODRINE HCL 10 MG TAB PO SCH (06:00)
[2022-12-07] MEDS: DOXYCYCLINE 100MG/250ML 250 ML IV SCH ×2 (06:07→18:14)
[2022-12-07 07:17] LABS: Base Excess -2.6 mmol/L (-2.0-2.0)
[2022-12-07] MEDS: cefTRIAXone 1GM/50ML D5W 50 ML IV SCH (09:15)
[2022-12-07] MEDS: PANTOPRAZOLE 40 MG/10 ML VIAL INJ IV SCH (09:15)
[2022-12-07] MEDS ORDERED: hydrALAZINE HCL 20 MG/ML VL IV PRN ×2 (12:45→18:00)
[2022-12-07] MEDS ORDERED: amLODIPine BESYLATE 5 MG TAB PO ONE (12:45)
[2022-12-07] MEDS: ACETYLCYSTEINE 10 %(100MG/ML) SOL 4ML NEB SCH ×2 (13:55→22:22)
[2022-12-07] MEDS: ALBUTEROL SULF 2.5 MG/0.5ML(0.5%) NEB SOLN NEB PRN ×2 (13:55→22:22)
[2022-12-07] MEDS: DOPamine 1600MCG/ML D5W 250 ML IV SCH (15:55)
[2022-12-08] VITALS (106 sets, daily range): BP systolic 97–155; BP diastolic 47–89; PULSE 65–93; RESP 14–39; TEMP 97.7–99.3; O2SAT 95–100
[2022-12-08] MEDS: PROPOFOL 100 ML IV SCH ×2 (03:29→16:49)
[2022-12-08] MEDS: MIDAZOLAM DRIP 50 mg/50mL 50 ML IV SCH (04:21)
[2022-12-08 04:28] LABS: Basophils # (auto) 0 10 ^3/uL (0-0.2); Basophils % (auto) 0.9 % (0.0-2.0); Eosinophils # (auto) 0.1 10 ^3/uL (0-0.8); Eosinophils % (auto) 1.7 % (0.0-7.0); Hemoglobin 9.4 g/dL (13.5-17.5); Mean Corpuscular Hemoglobin 28.6 pg (28.0-32.0); Mean Corpuscular Hgb Conc. 32.3 g/dL (32.0-36.0); Mean Corpuscular Volume 88.4 fL (80.0-100.0); Monocytes # (auto) 0.6 10 ^3/uL (0-1.3); Monocytes % (auto) 14.5 % (0.0-12.0); Neutrophils # (auto) 2.4 10 ^3/uL (1.6-8.6); Neutrophils % (auto) 58.9 % (37.0-80.0); Nucleated Red Blood Cells % 0.1 %; Red Blood Cells 3.28 10^6/uL (4.5-5.90); Red Cell Distribution Width 17.5 % (11.8-14.3)
[2022-12-08 04:36] LABS: Potassium 3.5 mmol/L (3.5-5.1)
[2022-12-08 04:41] LABS: Albumin 2.8 g/dL (3.4-5.0); BUN/Creatinine Ratio 15.2 (10.0-20.0); Calcium 8.7 mg/dL (8.5-10.1)
[2022-12-08 04:42] LABS: Bilirubin, Total 0.4 mg/dL (0.2-1.0); Total Protein 6.6 g/dL (6.4-8.2)
[2022-12-08] MEDS: DOXYCYCLINE 100MG/250ML 250 ML IV SCH ×2 (06:02→20:54)
[2022-12-08] MEDS: PHENYLEPHRINE IV 250 ML IV SCH ×3 (06:20→23:00)
[2022-12-08] MEDS: ACETYLCYSTEINE 10 %(100MG/ML) SOL 4ML NEB SCH ×3 (06:44→22:21)
[2022-12-08] MEDS: ALBUTEROL SULF 2.5 MG/0.5ML(0.5%) NEB SOLN NEB PRN ×3 (06:44→22:21)
[2022-12-08 09:30] LABS: Base Excess -3.5 mmol/L (-2.0-2.0)
[2022-12-08] MEDS: cefTRIAXone 1GM/50ML D5W 50 ML IV SCH (09:36)
[2022-12-08] MEDS: amLODIPine BESYLATE 5 MG TAB PO SCH (09:36)
[2022-12-08] MEDS: PANTOPRAZOLE 40 MG/10 ML VIAL INJ IV SCH (09:36)
[2022-12-08] MEDS: DOPamine 1600MCG/ML D5W 250 ML IV SCH (09:42)
[2022-12-08] MEDS ORDERED: Jevity 1.2 Cal/Fiber 1 Liter GT SCH (10:45)
[2022-12-08] MEDS ORDERED: MORPHINE SULFATE INJ 2 MG/ml SYRG IV PRN ×2 (10:45)
[2022-12-08] MEDS: MORPHINE SULFATE INJ 2 MG/ml SYRG IV PRN (11:05)
[2022-12-09] VITALS (105 sets, daily range): BP systolic 92–169; BP diastolic 47–80; PULSE 65–112; RESP 13–34; TEMP 97.2–98.6; O2SAT 97–100
[2022-12-09] MEDS: PROPOFOL 100 ML IV SCH ×3 (02:27→21:45)
[2022-12-09] MEDS: DOPamine 1600MCG/ML D5W 250 ML IV SCH ×2 (03:29→21:16)
[2022-12-09 04:19] LABS: Basophils # (auto) 0 10 ^3/uL (0-0.2); Basophils % (auto) 0.8 % (0.0-2.0); Eosinophils # (auto) 0.1 10 ^3/uL (0-0.8); Eosinophils % (auto) 1.6 % (0.0-7.0); Hematocrit 30.2 % (41.0-53.0); Hemoglobin 9.9 g/dL (13.5-17.5); Lymphocytes # (auto) 1.1 10 ^3/uL (0.4-5.4); Lymphocytes % (auto) 23.7 % (10.0-50.0); Mean Corpuscular Hemoglobin 28.7 pg (28.0-32.0); Mean Corpuscular Hgb Conc. 32.7 g/dL (32.0-36.0); Monocytes # (auto) 0.7 10 ^3/uL (0-1.3); Monocytes % (auto) 16.3 % (0.0-12.0); Neutrophils # (auto) 2.6 10 ^3/uL (1.6-8.6); Neutrophils % (auto) 57.6 % (37.0-80.0); Red Blood Cells 3.43 10^6/uL (4.5-5.90); Red Cell Distribution Width 17.1 % (11.8-14.3); White Blood Cell 4.6 10^3/uL (4.4-10.8)
[2022-12-09 04:38] LABS: Potassium 3.6 mmol/L (3.5-5.1)
[2022-12-09 04:44] LABS: Albumin 2.9 g/dL (3.4-5.0); BUN/Creatinine Ratio 16.4 (10.0-20.0); Bilirubin, Total 0.4 mg/dL (0.2-1.0); Calcium 9.1 mg/dL (8.5-10.1); Total Protein 7.2 g/dL (6.4-8.2)
[2022-12-09] MEDS: DOXYCYCLINE 100MG/250ML 250 ML IV SCH ×2 (06:01→17:55)
[2022-12-09] MEDS: PHENYLEPHRINE IV 250 ML IV SCH ×2 (07:20→15:40)
[2022-12-09] MEDS: ACETYLCYSTEINE 10 %(100MG/ML) SOL 4ML NEB SCH ×3 (07:35→21:47)
[2022-12-09] MEDS: ALBUTEROL SULF 2.5 MG/0.5ML(0.5%) NEB SOLN NEB PRN ×3 (07:36→21:47)
[2022-12-09] MEDS: PANTOPRAZOLE 40 MG/10 ML VIAL INJ IV SCH (10:10)
[2022-12-09] MEDS: cefTRIAXone 1GM/50ML D5W 50 ML IV SCH (10:10)
[2022-12-09] MEDS: amLODIPine BESYLATE 5 MG TAB PO SCH (10:10)
[2022-12-09 10:16] LABS: Base Excess -0.9 mmol/L (-2.0-2.0)
[2022-12-10] VITALS (108 sets, daily range): BP systolic 76–198; BP diastolic 40–115; PULSE 62–156; RESP 15–36; TEMP 96.6–99; O2SAT 91–100
[2022-12-10 03:53] LABS: Basophils # (auto) 0 10 ^3/uL (0-0.2); Basophils % (auto) 0.9 % (0.0-2.0); Eosinophils # (auto) 0.1 10 ^3/uL (0-0.8); Eosinophils % (auto) 1.6 % (0.0-7.0); Hematocrit 31.3 % (41.0-53.0); Hemoglobin 10.3 g/dL (13.5-17.5); Lymphocytes # (auto) 0.8 10 ^3/uL (0.4-5.4); Lymphocytes % (auto) 20.9 % (10.0-50.0); Mean Corpuscular Hgb Conc. 32.8 g/dL (32.0-36.0); Mean Corpuscular Volume 88.4 fL (80.0-100.0); Monocytes # (auto) 0.6 10 ^3/uL (0-1.3); Monocytes % (auto) 16.1 % (0.0-12.0); Neutrophils # (auto) 2.4 10 ^3/uL (1.6-8.6); Neutrophils % (auto) 60.5 % (37.0-80.0); Nucleated Red Blood Cells % 0.1 %; Red Blood Cells 3.54 10^6/uL (4.5-5.90); Red Cell Distribution Width 17.2 % (11.8-14.3)
[2022-12-10 04:12] LABS: Potassium 3.2 mmol/L (3.5-5.1)
[2022-12-10 04:19] LABS: BUN/Creatinine Ratio 19.7 (10.0-20.0); Bilirubin, Total 0.4 mg/dL (0.2-1.0); Total Protein 7.2 g/dL (6.4-8.2)
[2022-12-10] MEDS: DOXYCYCLINE 100MG/250ML 250 ML IV SCH ×2 (06:13→18:01)
[2022-12-10 07:47] LABS: Base Excess -4.1 mmol/L (-2.0-2.0)
[2022-12-10] MEDS: ACETYLCYSTEINE 10 %(100MG/ML) SOL 4ML NEB SCH ×3 (07:51→22:43)
[2022-12-10] MEDS: ALBUTEROL SULF 2.5 MG/0.5ML(0.5%) NEB SOLN NEB PRN ×3 (07:52→22:43)
[2022-12-10] MEDS: PHENYLEPHRINE IV 250 ML IV SCH ×4 (08:20→22:57)
[2022-12-10] MEDS: PROPOFOL 100 ML IV SCH ×3 (09:47→21:50)
[2022-12-10] MEDS: PANTOPRAZOLE 40 MG/10 ML VIAL INJ IV SCH (10:19)
[2022-12-10] MEDS: cefTRIAXone 1GM/50ML D5W 50 ML IV SCH (10:20)
[2022-12-10] MEDS: amLODIPine BESYLATE 5 MG TAB PO SCH (10:20)
[2022-12-10] MEDS: DOPamine 1600MCG/ML D5W 250 ML IV SCH (15:03)
[2022-12-10] MEDS: MIDAZOLAM DRIP 50 mg/50mL 50 ML IV SCH ×2 (15:54→19:32)
[2022-12-10] MEDS ORDERED: AMIODARONE HCL 150 MG in D5W 5% 100 ML IV ONE (16:30)
[2022-12-10] MEDS ORDERED: AMIODARONE HCL (50 MG/ ML) 3 ML VIAL IV ONE (16:32)
[2022-12-10] MEDS ORDERED: AMIODARONE 450mg/250ml AE 250 ML IV SCH (16:45)
[2022-12-10] MEDS: POTASSIUM CHL 20MEQ/100ML 100 ML IV SCH ×2 (17:09→18:59)
[2022-12-10] MEDS ORDERED: METOPROLOL TARTRATE 1MG/1ML-5ML VIAL IV ONE ×2 (17:28→17:30)
[2022-12-10] MEDS: fentaNYL Drip 2500mCg/250mlNS 250 ML IV SCH (17:39)
[2022-12-11] VITALS (106 sets, daily range): BP systolic 98–176; BP diastolic 42–75; PULSE 65–84; RESP 11–33; TEMP 96.4–99.7; O2SAT 95–100
[2022-12-11] MEDS: AMIODARONE 450mg/250ml AE 250 ML IV SCH ×2 (00:14→15:10)
[2022-12-11] MEDS: PHENYLEPHRINE IV 250 ML IV SCH ×3 (03:57→17:27)
[2022-12-11 04:34] LABS: Hematocrit 29.9 % (41.0-53.0); Hemoglobin 9.7 g/dL (13.5-17.5); Mean Corpuscular Hemoglobin 28.6 pg (28.0-32.0); Mean Corpuscular Hgb Conc. 32.4 g/dL (32.0-36.0); Mean Corpuscular Volume 88.1 fL (80.0-100.0); Red Blood Cells 3.39 10^6/uL (4.5-5.90); Red Cell Distribution Width 17.3 % (11.8-14.3); White Blood Cell 7.4 10^3/uL (4.4-10.8)
[2022-12-11 04:45] LABS: Potassium 3.9 mmol/L (3.5-5.1)
[2022-12-11] MEDS: PROPOFOL 100 ML IV SCH ×3 (04:47→22:54)
[2022-12-11 04:50] LABS: Albumin 2.7 g/dL (3.4-5.0); BUN/Creatinine Ratio 21.2 (10.0-20.0); Calcium 8.6 mg/dL (8.5-10.1)
[2022-12-11 04:53] LABS: Bilirubin, Total 0.4 mg/dL (0.2-1.0); Total Protein 6.8 g/dL (6.4-8.2)
[2022-12-11 04:54] LABS: Basophils % (manual) 0 (0.0-2.0); Blast Cells 0; Eosinophils % (manual) 0 (0-7); Metamyelocytes % 0; Myelocytes % 0; Promyelocytes % 0; Reactive Lymphocytes 0
[2022-12-11] MEDS: DOXYCYCLINE 100MG/250ML 250 ML IV SCH ×2 (06:07→18:46)
[2022-12-11] MEDS: ALBUTEROL SULF 2.5 MG/0.5ML(0.5%) NEB SOLN NEB PRN ×3 (06:21→22:08)
[2022-12-11] MEDS: ACETYLCYSTEINE 10 %(100MG/ML) SOL 4ML NEB SCH ×3 (06:21→22:09)
[2022-12-11 07:35] LABS: Band Neutrophils % (manual) 2; Lymphocytes % (manual) 35 (10.0-50.0); Monocytes % (manual) 11 (0-12)
[2022-12-11 07:36] LABS: Platelet Estimate Decreased
[2022-12-11 07:42] LABS: Base Excess -4.1 mmol/L (-2.0-2.0)
[2022-12-11] MEDS: DOPamine 1600MCG/ML D5W 250 ML IV SCH (08:16)
[2022-12-11] MEDS: cefTRIAXone 1GM/50ML D5W 50 ML IV SCH (09:13)
[2022-12-11] MEDS: PANTOPRAZOLE 40 MG/10 ML VIAL INJ IV SCH (10:03)
[2022-12-11] MEDS: amLODIPine BESYLATE 5 MG TAB PO SCH (10:12)
[2022-12-11 11:59] LABS: Base Excess -3.8 mmol/L (-2.0-2.0)
[2022-12-11] MEDS: fentaNYL Drip 2500mCg/250mlNS 250 ML IV SCH (17:30)
[2022-12-11] MEDS: DOCUSATE ORAL LIQUID 100 MG/10 ML UD GT SCH (21:43)
[2022-12-12] VITALS (101 sets, daily range): BP systolic 106–175; BP diastolic 23–93; PULSE 65–141; RESP 11–32; TEMP 97.9–100.4; O2SAT 96–100
[2022-12-12] MEDS: PHENYLEPHRINE IV 250 ML IV SCH ×2 (01:35→18:09)
[2022-12-12] MEDS: DOPamine 1600MCG/ML D5W 250 ML IV SCH ×2 (02:37→20:24)
[2022-12-12 03:47] LABS: Hematocrit 31.1 % (41.0-53.0); Mean Corpuscular Hemoglobin 28.7 pg (28.0-32.0); Mean Corpuscular Hgb Conc. 32.1 g/dL (32.0-36.0); Mean Corpuscular Volume 89.4 fL (80.0-100.0); Red Blood Cells 3.48 10^6/uL (4.5-5.90); Red Cell Distribution Width 17.4 % (11.8-14.3); White Blood Cell 6.1 10^3/uL (4.4-10.8)
[2022-12-12 03:54] LABS: Basophils % (manual) 0 (0.0-2.0); Blast Cells 0; Metamyelocytes % 0; Myelocytes % 0; Promyelocytes % 0; Reactive Lymphocytes 0
[2022-12-12 04:11] LABS: Albumin 2.7 g/dL (3.4-5.0); Calcium 8.4 mg/dL (8.5-10.1); Potassium 3.6 mmol/L (3.5-5.1)
[2022-12-12 04:14] LABS: BUN/Creatinine Ratio 20.3 (10.0-20.0)
[2022-12-12 04:16] LABS: Bilirubin, Total 0.4 mg/dL (0.2-1.0); Total Protein 6.9 g/dL (6.4-8.2)
[2022-12-12] MEDS: DOXYCYCLINE 100MG/250ML 250 ML IV SCH ×2 (05:08→18:09)
[2022-12-12] MEDS: AMIODARONE 450mg/250ml AE 250 ML IV SCH ×2 (05:18→21:43)
[2022-12-12] MEDS: ALBUTEROL SULF 2.5 MG/0.5ML(0.5%) NEB SOLN NEB PRN ×2 (06:05→22:23)
[2022-12-12] MEDS: ACETYLCYSTEINE 10 %(100MG/ML) SOL 4ML NEB SCH ×3 (06:05→22:23)
[2022-12-12 06:21] LABS: Band Neutrophils % (manual) 8; Eosinophils % (manual) 2 (0-7); Lymphocytes % (manual) 17 (10.0-50.0); Monocytes % (manual) 18 (0-12); Platelet Estimate Decreased
[2022-12-12 06:22] LABS: Anisocytosis Slight; Ovalocytes FEW
[2022-12-12] MEDS: PROPOFOL 100 ML IV SCH (08:09)
[2022-12-12 08:34] LABS: Base Excess -4.7 mmol/L (-2.0-2.0)
[2022-12-12] MEDS ORDERED: METOPROLOL TARTRATE 25 MG TAB ONE (09:09)
[2022-12-12] MEDS ORDERED: METOPROLOL TARTRATE 25 MG TAB PO ONE ×2 (09:15→11:15)
[2022-12-12] MEDS: cefTRIAXone 1GM/50ML D5W 50 ML IV SCH (09:19)
[2022-12-12] MEDS: DOCUSATE ORAL LIQUID 100 MG/10 ML UD GT SCH ×2 (09:52→21:42)
[2022-12-12] MEDS: PANTOPRAZOLE 40 MG/10 ML VIAL INJ IV SCH (09:52)
[2022-12-12] MEDS: amLODIPine BESYLATE 5 MG TAB PO SCH (10:18)
[2022-12-12] MEDS ORDERED: ALBUTEROL SULF 2.5 MG/0.5ML(0.5%) NEB SOLN ONE (12:57)
[2022-12-12] MEDS ORDERED: EPINEPHrine HCL 0.5 ML NEB ONE (12:57)
[2022-12-12] MEDS: MORPHINE SULFATE INJ 2 MG/ml SYRG IV PRN ×2 (15:10→21:51)
[2022-12-12] MEDS: fentaNYL Drip 2500mCg/250mlNS 250 ML IV SCH (17:30)
[2022-12-12] MEDS ORDERED: DIGOXIN (250MCG/ML) 2 ML AMPULE IV ONE (23:45)
[2022-12-13] VITALS (49 sets, daily range): BP systolic 16–155; BP diastolic 52–86; PULSE 65–131; RESP 14–25; TEMP 97.2–99; O2SAT 94–100
[2022-12-13] MEDS: MORPHINE SULFATE INJ 2 MG/ml SYRG IV PRN (02:46)
[2022-12-13] MEDS: PHENYLEPHRINE IV 250 ML IV SCH ×3 (03:00→19:40)
[2022-12-13 03:49] LABS: Hematocrit 32.8 % (41.0-53.0); Hemoglobin 10.7 g/dL (13.5-17.5); Mean Corpuscular Hemoglobin 28.5 pg (28.0-32.0); Mean Corpuscular Hgb Conc. 32.6 g/dL (32.0-36.0); Mean Corpuscular Volume 87.4 fL (80.0-100.0); Red Blood Cells 3.76 10^6/uL (4.5-5.90); Red Cell Distribution Width 17.2 % (11.8-14.3); White Blood Cell 7.3 10^3/uL (4.4-10.8)
[2022-12-13 03:53] LABS: Basophils % (manual) 0 (0.0-2.0); Blast Cells 0; Eosinophils % (manual) 0 (0-7); Myelocytes % 0; Promyelocytes % 0; Reactive Lymphocytes 0
[2022-12-13 04:12] LABS: Albumin 2.8 g/dL (3.4-5.0); BUN/Creatinine Ratio 19.4 (10.0-20.0); Bilirubin, Total 0.6 mg/dL (0.2-1.0); Calcium 9.1 mg/dL (8.5-10.1); Total Protein 7.5 g/dL (6.4-8.2)
[2022-12-13] MEDS ORDERED: METOPROLOL TARTRATE 1MG/1ML-5ML VIAL IV PRN (04:45)
[2022-12-13] MEDS: AMIODARONE 450mg/250ml AE 250 ML IV SCH ×2 (05:00→08:11)
[2022-12-13] MEDS: POTASSIUM CHL 20MEQ/100ML 100 ML IV SCH ×3 (05:35→08:08)
[2022-12-13] MEDS: ALBUTEROL SULF 2.5 MG/0.5ML(0.5%) NEB SOLN NEB PRN ×3 (05:58→22:05)
[2022-12-13] MEDS: ACETYLCYSTEINE 10 %(100MG/ML) SOL 4ML NEB SCH ×3 (05:59→22:04)
[2022-12-13 06:59] LABS: Anisocytosis Slight; Band Neutrophils % (manual) 4; Lymphocytes % (manual) 14 (10.0-50.0); Metamyelocytes % 1; Monocytes % (manual) 17 (0-12); Ovalocytes FEW; Platelet Estimate Decreased
[2022-12-13] MEDS: DOXYCYCLINE 100MG/250ML 250 ML IV SCH ×2 (08:30→19:09)
[2022-12-13] MEDS ORDERED: AMIODARONE 450mg/250ml AE 250 ML IV SCH (09:00)
[2022-12-13] MEDS: PANTOPRAZOLE 40 MG/10 ML VIAL INJ IV SCH (09:59)
[2022-12-13] MEDS: cefTRIAXone 1GM/50ML D5W 50 ML IV SCH (09:59)
[2022-12-13] MEDS: DOCUSATE ORAL LIQUID 100 MG/10 ML UD GT SCH ×2 (09:59→21:44)
[2022-12-13] MEDS ORDERED: dilTIAZem 120MG ER CAP PO SCH (10:00)
[2022-12-13] MEDS ORDERED: DIGOXIN (250MCG/ML) 2 ML AMPULE IV SCH (10:00)
[2022-12-13] MEDS: AMIODARONE HCL 200 MG TAB PO SCH ×2 (10:00→21:44)
[2022-12-13] MEDS: amLODIPine BESYLATE 5 MG TAB PO SCH (10:01)
[2022-12-13] MEDS: APIXABAN 5 MG TAB PO SCH ×2 (10:07→21:44)
[2022-12-13] MEDS: dilTIAZem HCL 60 MG TAB GT SCH ×3 (12:00→23:51)
[2022-12-13] MEDS: DOPamine 1600MCG/ML D5W 250 ML IV SCH (14:11)
[2022-12-13] MEDS: fentaNYL Drip 2500mCg/250mlNS 250 ML IV SCH (17:30)
[2022-12-13] MEDS: PROPOFOL 100 ML IV SCH (18:30)
[2022-12-14] VITALS (101 sets, daily range): BP systolic 111–139; BP diastolic 50–85; PULSE 67–140; RESP 12–30; TEMP 98–98.7; O2SAT 92–100
[2022-12-14] MEDS: PHENYLEPHRINE IV 250 ML IV SCH ×3 (04:00→20:40)
[2022-12-14 04:19] LABS: Hematocrit 29.6 % (41.0-53.0); Hemoglobin 9.7 g/dL (13.5-17.5); Mean Corpuscular Hemoglobin 28.6 pg (28.0-32.0); Mean Corpuscular Hgb Conc. 32.8 g/dL (32.0-36.0); Mean Corpuscular Volume 87.2 fL (80.0-100.0); Red Blood Cells 3.39 10^6/uL (4.5-5.90); Red Cell Distribution Width 16.6 % (11.8-14.3); White Blood Cell 5.2 10^3/uL (4.4-10.8)
[2022-12-14 04:37] LABS: Potassium 3.3 mmol/L (3.5-5.1)
[2022-12-14 04:51] LABS: Albumin 2.7 g/dL (3.4-5.0); BUN/Creatinine Ratio 19.3 (10.0-20.0); Bilirubin, Total 0.5 mg/dL (0.2-1.0); Calcium 8.6 mg/dL (8.5-10.1); Total Protein 6.6 g/dL (6.4-8.2)
[2022-12-14 04:59] LABS: Basophils % (manual) 0 (0.0-2.0); Blast Cells 0; Eosinophils % (manual) 0 (0-7); Promyelocytes % 0; Reactive Lymphocytes 0
[2022-12-14] MEDS: dilTIAZem HCL 60 MG TAB GT SCH ×3 (05:34→18:00)
[2022-12-14] MEDS: DOXYCYCLINE 100MG/250ML 250 ML IV SCH ×2 (05:34→18:58)
[2022-12-14] MEDS: ALBUTEROL SULF 2.5 MG/0.5ML(0.5%) NEB SOLN NEB PRN ×3 (06:47→22:41)
[2022-12-14] MEDS: ACETYLCYSTEINE 10 %(100MG/ML) SOL 4ML NEB SCH ×3 (06:48→22:41)
[2022-12-14] MEDS: DOPamine 1600MCG/ML D5W 250 ML IV SCH (07:58)
[2022-12-14] MEDS ORDERED: dilTIAZem HCL 60 MG TAB PO ONE (08:00)
[2022-12-14] MEDS ORDERED: POTASSIUM EFFERVESENT TAB 25 MEQ PO ONE (08:30)
[2022-12-14 08:40] LABS: Band Neutrophils % (manual) 9; Lymphocytes % (manual) 8 (10.0-50.0); Metamyelocytes % 4; Monocytes % (manual) 7 (0-12); Myelocytes % 5; Platelet Estimate Decreased
[2022-12-14 08:41] LABS: Giant Platelets Few
[2022-12-14] MEDS: APIXABAN 5 MG TAB PO SCH ×2 (10:00→22:00)
[2022-12-14] MEDS: amLODIPine BESYLATE 5 MG TAB PO SCH (10:10)
[2022-12-14] MEDS: cefTRIAXone 1GM/50ML D5W 50 ML IV SCH (10:10)
[2022-12-14] MEDS: AMIODARONE HCL 200 MG TAB PO SCH ×2 (10:10→22:20)
[2022-12-14] MEDS: PANTOPRAZOLE 40 MG/10 ML VIAL INJ IV SCH (10:11)
[2022-12-14] MEDS: DOCUSATE ORAL LIQUID 100 MG/10 ML UD GT SCH ×2 (10:11→22:20)
[2022-12-14] MEDS ORDERED: APIX5TAB PO (14:04)
[2022-12-14] MEDS ORDERED: DILT60TA2 GT (14:04)
[2022-12-14] MEDS ORDERED: AML5T PO (14:04)
[2022-12-14] MEDS ORDERED: AMIO200T13 PO (14:08)
[2022-12-14] MEDS: fentaNYL Drip 2500mCg/250mlNS 250 ML IV SCH (17:21)
[2022-12-14] MEDS: PROPOFOL 100 ML IV SCH (18:30)
[2022-12-15] VITALS (40 sets, daily range): BP systolic 95–135; BP diastolic 53–65; PULSE 64–80; RESP 13–26; TEMP 98–98.3; O2SAT 93–100
[2022-12-15] MEDS: DOPamine 1600MCG/ML D5W 250 ML IV SCH (01:45)
[2022-12-15 04:13] LABS: Basophils # (auto) 0 10 ^3/uL (0-0.2); Basophils % (auto) 0.7 % (0.0-2.0); Eosinophils # (auto) 0 10 ^3/uL (0-0.8); Eosinophils % (auto) 0.6 % (0.0-7.0); Hemoglobin 10.6 g/dL (13.5-17.5); Lymphocytes # (auto) 1.1 10 ^3/uL (0.4-5.4); Lymphocytes % (auto) 22.3 % (10.0-50.0); Mean Corpuscular Hemoglobin 28.4 pg (28.0-32.0); Mean Corpuscular Hgb Conc. 33.1 g/dL (32.0-36.0); Monocytes # (auto) 0.6 10 ^3/uL (0-1.3); Monocytes % (auto) 12.9 % (0.0-12.0); Neutrophils % (auto) 63.5 % (37.0-80.0); Nucleated Red Blood Cells % 0.1 %; Red Blood Cells 3.72 10^6/uL (4.5-5.90); White Blood Cell 4.8 10^3/uL (4.4-10.8)
[2022-12-15 04:26] LABS: Potassium 3.8 mmol/L (3.5-5.1)
[2022-12-15 04:36] LABS: Albumin 2.8 g/dL (3.4-5.0); BUN/Creatinine Ratio 16.8 (10.0-20.0); Bilirubin, Total 0.6 mg/dL (0.2-1.0); Calcium 9.1 mg/dL (8.5-10.1); Total Protein 6.9 g/dL (6.4-8.2)
[2022-12-15] MEDS: PHENYLEPHRINE IV 250 ML IV SCH (05:00)
[2022-12-15] MEDS: dilTIAZem HCL 60 MG TAB GT SCH ×3 (05:42→12:00)
[2022-12-15] MEDS: ALBUTEROL SULF 2.5 MG/0.5ML(0.5%) NEB SOLN NEB PRN ×2 (06:11→14:34)
[2022-12-15] MEDS: ACETYLCYSTEINE 10 %(100MG/ML) SOL 4ML NEB SCH ×2 (06:14→14:34)
[2022-12-15] MEDS: PANTOPRAZOLE 40 MG/10 ML VIAL INJ IV SCH (09:57)
[2022-12-15] MEDS: DOCUSATE ORAL LIQUID 100 MG/10 ML UD GT SCH (09:57)
[2022-12-15] MEDS: APIXABAN 5 MG TAB PO SCH (09:58)
[2022-12-15] MEDS: amLODIPine BESYLATE 5 MG TAB PO SCH (09:58)
[2022-12-15] MEDS: AMIODARONE HCL 200 MG TAB PO SCH (09:58)
[2022-12-15] MEDS ORDERED: ACETAMINOPHEN 500 MG TAB PO PRN (11:15)
== END 2022-12-15 15:59 | DRG 242 ==
LOC: EDBD 12:59 → ER 12:59 → TELE 18:36 → ICU WEST 21:17
PROVIDERS: ADMIT Internal Medicine; ATTEND Internal Medicine
PROC: 5A1955Z Respiratory Ventilation, Greater than 96 Consecutive Hours (ICD-10-PCS; 2022-12-02)
PROC: 0BH17EZ Insertion of Endotracheal Airway into Trachea, Via Natural or Artificial Opening (ICD-10-PCS; 2022-12-02)
PROC: 02HV33Z Insertion of Infusion Device into Superior Vena Cava, Percutaneous Approach (ICD-10-PCS; 2022-12-02)
PROC: 0JH606Z Insertion of Pacemaker, Dual Chamber into Chest Subcutaneous Tissue and Fascia, Open Approach (ICD-10-PCS; principal; 2022-12-05)
PROC: 02H63JZ Insertion of Pacemaker Lead into Right Atrium, Percutaneous Approach (ICD-10-PCS; 2022-12-05)
PROC: 02HK3JZ Insertion of Pacemaker Lead into Right Ventricle, Percutaneous Approach (ICD-10-PCS; 2022-12-05)
PROC: 30233R1 Transfusion of Nonautologous Platelets into Peripheral Vein, Percutaneous Approach (ICD-10-PCS; 2022-12-05)
PROC: 5A1935Z Respiratory Ventilation, Less than 24 Consecutive Hours (ICD-10-PCS; 2022-12-14)
PROC: 0BH17EZ Insertion of Endotracheal Airway into Trachea, Via Natural or Artificial Opening (ICD-10-PCS; 2022-12-14)
DX: I49.5 Sick sinus syndrome (principal); I50.43 Acute on chronic combined systolic (congestive) and diastolic (congestive) heart failure; J96.01 Acute respiratory failure with hypoxia; N17.0 Acute kidney failure with tubular necrosis; J44.0 Chronic obstructive pulmonary disease with (acute) lower respiratory infection; I13.0 Hypertensive heart and chronic kidney disease with heart failure and stage 1 through stage 4 chronic kidney disease, or unspecified chronic kidney disease; J90 Pleural effusion, not elsewhere classified; I48.92 Unspecified atrial flutter; D69.6 Thrombocytopenia, unspecified; E11.22 Type 2 diabetes mellitus with diabetic chronic kidney disease; C67.9 Malignant neoplasm of bladder, unspecified; N18.31 Chronic kidney disease, stage 3a; F17.210 Nicotine dependence, cigarettes, uncomplicated; I95.9 Hypotension, unspecified; I48.91 Unspecified atrial fibrillation; Z66 Do not resuscitate; Z82.49 Family history of ischemic heart disease and other diseases of the circulatory system; Z83.3 Family history of diabetes mellitus; Z85.51 Personal history of malignant neoplasm of bladder
CPT/HCPCS: 31500; 33208; 36415; 36556; 36600; 71045; 74018; 80048; 80053; 80162; 81001; 82805; 82962; 83605; 83735; 83880; 84484; 85007; 85025; 85027; 85610; 85730; 86850; 86900; 86901; 87040; 87070; 87081; 87086; 87205; 87426; 87804; 92610; 93005; 93306; 93970; 94002; 94003; 94640; 96365; 96374; 99152; 99291; C9113; G0378; J0330; J0696; J2250; J2704; J3480; J3490; J7060; P9047

== ENCOUNTER 2023-01-18 19:59 | Observation (INO) | payer OTHER ==
[~2023-01-18] VITALS: Ht 167.6 cm; Wt 63.6 kg
[~2023-01-18 19:59] MED LIST changes: +AMIO200T13 PO; +AML5T PO; +APIX5TAB PO; +DILT60TA2 GT; -METO-6 PO
[2023-01-18 20:58] LABS: Basophils # (auto) 0 10 ^3/uL (0-0.2); Basophils % (auto) 0.7 % (0.0-2.0); Eosinophils # (auto) 0 10 ^3/uL (0-0.8); Hemoglobin 9.8 g/dL (13.5-17.5); Lymphocytes % (auto) 20.3 % (10.0-50.0); Mean Corpuscular Hemoglobin 28.4 pg (28.0-32.0); Mean Corpuscular Hgb Conc. 32.5 g/dL (32.0-36.0); Mean Corpuscular Volume 87.3 fL (80.0-100.0); Monocytes # (auto) 0.2 10 ^3/uL (0-1.3); Monocytes % (auto) 4.4 % (0.0-12.0); Neutrophils # (auto) 3.7 10 ^3/uL (1.6-8.6); Neutrophils % (auto) 74.6 % (37.0-80.0); Red Blood Cells 3.44 10^6/uL (4.5-5.90); Red Cell Distribution Width 18.6 % (11.8-14.3)
[2023-01-18 20:59] LABS: Urine Bacteria NONE SEEN /hpf (None Seen); Urine Hyaline Cast MOD /lpf (0 - 2); Urine Mucus FEW (None Seen); Urine WBC 292 /hpf (0 - 3); Urine WBC Clumps PRESENT /hpf (None Seen)
[2023-01-18 21:10] LABS: Urine Clarity Hazy (Clear); Urine Color Amber (Yellow); Urine Specific Gravity 1.015 (1.001-1.035)
[2023-01-18 21:11] LABS: Urine Blood 4+ /uL (Negative); Urine Protein, UAD 3+ (Negative); Urine Urobilinogen Normal (Negative)
[2023-01-18 21:17] LABS: Albumin 3.6 g/dL (3.4-5.0); Calcium 8.5 mg/dL (8.5-10.1); Potassium 5.5 mmol/L (3.5-5.1)
[2023-01-18 21:21] LABS: BUN/Creatinine Ratio 7.3 (10.0-20.0); Bilirubin, Total 0.4 mg/dL (0.2-1.0); Total Protein 7.6 g/dL (6.4-8.2)
[2023-01-18] MEDS ORDERED: LACTATED RINGER'S 1,000 ML IV ONE (22:45)
[2023-01-19] MEDS ORDERED: InsuLIN REG 1unit/0.01ml Soln (100units/ml) IV ONE ×3 (00:30→10:15)
[2023-01-19] MEDS ORDERED: SODIUM BICARBONATE 8.4 % INJ 50ML VIAL IV ONE ×2 (00:30→10:15)
[2023-01-19] MEDS ORDERED: PIPERACILLIN-TAZOB 3.375GM 100 ML IV ONE (00:30)
[2023-01-19] MEDS ORDERED: DEXTROSE (50%) 50ML SYRG IV ONE ×3 (00:30→10:15)
[2023-01-19] MEDS ORDERED: CALCIUM GLUC 1,000mg/50ml-NS 50 ML IV ONE ×2 (00:30→10:15)
[2023-01-19] MEDS ORDERED: NITROGLYCERIN 0.4 MG SL TAB SL PRN (06:45)
[2023-01-19] MEDS ORDERED: MORPHINE SULFATE INJ 2 MG/ml SYRG IV PRN (06:45)
[2023-01-19] MEDS ORDERED: ONDANSETRON HCL 4 MG/2 ML VIAL IV PRN (07:00)
[2023-01-19] MEDS ORDERED: SODIUM CHLORIDE 0.9% 1,000 ML IV ONE (07:00)
[2023-01-19 07:25] VITALS: PULSE 65; RESP 24; O2SAT 98
[2023-01-19 08:17] LABS: INR 1.4 (0.9-1.15); Prothrombin Time 14.4 sec (9.3-11.8)
[2023-01-19 09:00] LABS: Calcium 8.5 mg/dL (8.5-10.1)
[2023-01-19 09:26] LABS: Potassium 6.1 mmol/L (3.5-5.1)
[2023-01-19] MEDS ORDERED: ALBUTEROL SULF 2.5 MG/0.5ML(0.5%) NEB SOLN NEB ONE ×2 (10:00→10:15)
[2023-01-19] MEDS ORDERED: CIPROFLOXACIN 400MG/200ML 200 ML IV SCH (10:00)
[2023-01-19] MEDS ORDERED: FUROSEMIDE 20 MG/2 ML VIAL IV ONE (10:15)
[2023-01-19] MEDS: SODIUM ZIRCONIUM CYCL 10 GM PAK PO SCH ×3 (10:30→22:17)
[2023-01-19] MEDS: SODIUM BICARBONATE 50ML VIAL 150 ML in D5W 5% 1,000 ML IV SCH (12:18)
[2023-01-19 13:00] LABS: Basophils # (auto) 0 10 ^3/uL (0-0.2); Basophils % (auto) 0.1 % (0.0-2.0); Eosinophils # (auto) 0 10 ^3/uL (0-0.8); Hematocrit 29.7 % (41.0-53.0); Hemoglobin 9.5 g/dL (13.5-17.5); Lymphocytes # (auto) 0.2 10 ^3/uL (0.4-5.4); Lymphocytes % (auto) 1.4 % (10.0-50.0); Mean Corpuscular Hemoglobin 27.8 pg (28.0-32.0); Mean Corpuscular Hgb Conc. 31.9 g/dL (32.0-36.0); Mean Corpuscular Volume 87.2 fL (80.0-100.0); Monocytes # (auto) 1.4 10 ^3/uL (0-1.3); Monocytes % (auto) 8.4 % (0.0-12.0); Neutrophils # (auto) 14.7 10 ^3/uL (1.6-8.6); Neutrophils % (auto) 90.1 % (37.0-80.0); White Blood Cell 16.3 10^3/uL (4.4-10.8)
[2023-01-19 13:57] LABS: Urine Bacteria NONE SEEN /hpf (None Seen); Urine Blood 3+ /uL (Negative); Urine Clarity HAZY (Clear); Urine Color Yellow (Yellow); Urine Protein, UAD 2+ (Negative); Urine Specific Gravity 1.015 (1.001-1.035); Urine Urobilinogen Normal (Negative); Urine WBC 19 /hpf (0 - 3); Urine pH 5.5 (5.0-8.0)
[2023-01-19 19:30] VITALS: PULSE 65; RESP 14; O2SAT 93
[2023-01-20] MEDS: SODIUM BICARBONATE 50ML VIAL 150 ML in D5W 5% 1,000 ML IV SCH ×2 (01:50→09:10)
[2023-01-20 04:59] LABS: Basophils # (auto) 0 10 ^3/uL (0-0.2); Eosinophils # (auto) 0 10 ^3/uL (0-0.8); Hemoglobin 8.1 g/dL (13.5-17.5); Lymphocytes # (auto) 0.6 10 ^3/uL (0.4-5.4); Monocytes # (auto) 0.7 10 ^3/uL (0-1.3)
[2023-01-20 05:02] LABS: Basophils % (auto) 0.3 % (0.0-2.0); Eosinophils % (auto) 0.2 % (0.0-7.0); Hematocrit 23.5 % (41.0-53.0); Lymphocytes % (auto) 6.6 % (10.0-50.0); Mean Corpuscular Hemoglobin 29.4 pg (28.0-32.0); Mean Corpuscular Hgb Conc. 34.7 g/dL (32.0-36.0); Mean Corpuscular Volume 84.7 fL (80.0-100.0); Monocytes % (auto) 8.1 % (0.0-12.0); Neutrophils # (auto) 7.6 10 ^3/uL (1.6-8.6); Neutrophils % (auto) 84.8 % (37.0-80.0); Nucleated Red Blood Cells % 0.1 %; Red Blood Cells 2.77 10^6/uL (4.5-5.90); Red Cell Distribution Width 19.1 % (11.8-14.3); White Blood Cell 8.9 10^3/uL (4.4-10.8)
[2023-01-20 05:18] LABS: Calcium 7.8 mg/dL (8.5-10.1); Potassium 4.1 mmol/L (3.5-5.1)
[2023-01-20 05:24] LABS: Albumin 2.7 g/dL (3.4-5.0); Bilirubin, Total 0.3 mg/dL (0.2-1.0); Total Protein 5.6 g/dL (6.4-8.2)
[2023-01-20] MEDS: SODIUM ZIRCONIUM CYCL 10 GM PAK PO SCH (06:10)
[2023-01-20 08:46] VITALS: PULSE 74; RESP 20; O2SAT 94
[2023-01-20] MEDS ORDERED: cefTRIAXone 1GM/50ML D5W 50 ML IV SCH (09:00)
[2023-01-20] MEDS ORDERED: FUROSEMIDE 40 MG/4 ML VIAL IV SCH (11:15)
[2023-01-20] MEDS ORDERED: APIX5TAB OR (11:37)
[2023-01-20] MEDS ORDERED: CEFD300C2 PO (11:37)
[2023-01-20 16:19] VITALS: BP 117/58; PULSE 65; RESP 18; TEMP 98.8; O2SAT 94
[2023-01-20 20:39] LABS: Creatinine, Urine 101 mg/dL (30.0-125.0); Sodium Urine 34 mmol/L (40-220)
== END 2023-01-20 16:20 | disposition home health service (06) ==
LOC: ER 19:59 → TELE 01-19 06:43
PROVIDERS: ADMIT Internal Medicine; ATTEND Hospitalist
DX: A41.9 Sepsis, unspecified organism (principal); R65.20 Severe sepsis without septic shock; N39.0 Urinary tract infection, site not specified; I12.9 Hypertensive chronic kidney disease with stage 1 through stage 4 chronic kidney disease, or unspecified chronic kidney disease; N18.32 Chronic kidney disease, stage 3b; E11.22 Type 2 diabetes mellitus with diabetic chronic kidney disease; E87.20 Acidosis, unspecified; E87.1 Hypo-osmolality and hyponatremia; E78.5 Hyperlipidemia, unspecified; E86.0 Dehydration; E87.5 Hyperkalemia; I48.20 Chronic atrial fibrillation, unspecified; J44.9 Chronic obstructive pulmonary disease, unspecified; J81.1 Chronic pulmonary edema; N10 Acute pyelonephritis; N17.9 Acute kidney failure, unspecified; F17.210 Nicotine dependence, cigarettes, uncomplicated; Z79.84 Long term (current) use of oral hypoglycemic drugs; Z85.51 Personal history of malignant neoplasm of bladder; Z99.81 Dependence on supplemental oxygen; Z79.899 Other long term (current) drug therapy; Z98.890 Other specified postprocedural states
CPT/HCPCS: 36415; 71045; 76775; 80048; 80053; 81001; 82306; 82570; 82962; 83880; 83970; 84100; 84132; 84300; 85025; 85610; 87086; 87088; 87186; 94640; 96361; 96365; 96366; 96367; 96368; 96375; 96376; 99291; G0378; J0610; J0696; J0744; J1815; J1940; J2405; J2543; J7042; J7070

== ENCOUNTER 2023-07-28 15:29 | Emergency (ER) | payer OTHER ==
[~2023-07-28] VITALS: Ht 167.6 cm; Wt 66.7 kg
[~2023-07-28 15:29] MED LIST changes: +APIX5TAB OR; +CEFD300C2 PO
[2023-07-28 15:43] VITALS: BP 135/63; RESP 18; O2SAT 100
[2023-07-28 16:02] VITALS: PULSE 77
[2023-07-28 16:22] LABS: Basophils # (auto) 0.1 10 ^3/uL (0-0.2); Basophils % (auto) 1.4 % (0.0-2.0); Eosinophils # (auto) 0 10 ^3/uL (0-0.8); Eosinophils % (auto) 0.6 % (0.0-7.0); Hematocrit 36.4 % (41.0-53.0); Hemoglobin 11.8 g/dL (13.5-17.5); Lymphocytes # (auto) 1.7 10 ^3/uL (0.4-5.4); Lymphocytes % (auto) 29.1 % (10.0-50.0); Mean Corpuscular Hemoglobin 27.3 pg (28.0-32.0); Mean Corpuscular Hgb Conc. 32.3 g/dL (32.0-36.0); Mean Corpuscular Volume 84.5 fL (80.0-100.0); Monocytes # (auto) 0.6 10 ^3/uL (0-1.3); Monocytes % (auto) 10.1 % (0.0-12.0); Neutrophils # (auto) 3.3 10 ^3/uL (1.6-8.6); Neutrophils % (auto) 58.8 % (37.0-80.0); Nucleated Red Blood Cells % 0.2 %; Red Blood Cells 4.32 10^6/uL (4.5-5.90); Red Cell Distribution Width 14.6 % (11.8-14.3); White Blood Cell 5.7 10^3/uL (4.4-10.8)
[2023-07-28 16:27] LABS: Urine Bacteria FEW /hpf (None Seen); Urine Blood 3+ /uL (Negative); Urine Clarity HAZY (Clear); Urine Color Yellow (Yellow); Urine Hyaline Cast FEW /lpf (0 - 2); Urine Mucus FEW (None Seen); Urine Protein, UAD 2+ (Negative); Urine Specific Gravity 1.018 (1.001-1.035); Urine Urobilinogen Normal (Negative); Urine WBC 12 /hpf (0 - 3); Urine pH 5.5 (5.0-8.0)
[2023-07-28 16:42] LABS: Alanine Aminotransferase 25 U/L (7-40); Albumin 4.5 g/dL (3.2-4.8); Alkaline Phosphatase 49 U/L (46-116); Anion Gap 11 (5-15); Aspartate Aminotransferase 19 U/L (13-40); Calcium 9.3 mg/dL (8.7-10.4); Carbon Dioxide 21 mmol/L (20-30); Chloride 104 mmol/L (98-107); Glucose 89 mg/dL (74-106); Lipase 34 U/L (12-53); Potassium 4.6 mmol/L (3.5-5.1); Sodium 136 mmol/L (136-145)
[2023-07-28 16:43] LABS: Bilirubin, Total 0.6 mg/dL (0.2-1.0); Total Protein 7.8 g/dL (5.7-8.2)
[2023-07-28 16:56] LABS: BUN/Creatinine Ratio 10.8 (10.0-20.0); Blood Urea Nitrogen 32 mg/dL (9-23)
[2023-07-28] MEDS ORDERED: CIPR-173 PO (18:01)
[2023-07-28] MEDS ORDERED: ZOFR4T PO (18:02)
[2023-07-28] MEDS: ONDANSETRON HCL 4 MG/2 ML VIAL IV ONE (20:30)
[2023-07-28] MEDS: PANTOPRAZOLE 40 MG/10 ML VIAL INJ IV ONE (20:31)
[2023-07-28] MEDS: SODIUM CHLORIDE 0.9% 500 ML IVB ONE (20:31)
== END 2023-07-28 20:32 | disposition home or self-care (01) ==
LOC: ER 15:29
DX: C67.9 Malignant neoplasm of bladder, unspecified (principal); C79.9 Secondary malignant neoplasm of unspecified site; K80.20 Calculus of gallbladder without cholecystitis without obstruction; R11.2 Nausea with vomiting, unspecified; I10 Essential (primary) hypertension; E11.9 Type 2 diabetes mellitus without complications; F17.210 Nicotine dependence, cigarettes, uncomplicated; Z87.442 Personal history of urinary calculi; Z98.890 Other specified postprocedural states; Z79.899 Other long term (current) drug therapy
CPT/HCPCS: 36415; 74176; 76705; 80053; 81001; 82962; 83690; 85025; 93005

== ENCOUNTER 2025-02-08 08:10 | Observation (INO) | payer OTHER ==
[~2025-02-08] VITALS: Ht 167.6 cm; Wt 68.9 kg
[~2025-02-08 08:10] MED LIST changes: +CIPR-173 PO; -ROSU1TAB15 PO; +ROSU40TA47 PO; +ZOFR4T PO
[2025-02-08 08:11] VITALS: BP 150/57; PULSE 100; RESP 18; TEMP 97.8; O2SAT 65
--- NOTE | 2025-02-08 08:47 | ED.PDOC ---
General HPI Comments This is a 79 year old male presenting to the ED with chief complaint of hematuria. reports that the patient has been experiencing hematuria for the past 3 days consistently, however, due to his history of bladder tumors, he has had intermittent hematuria that is normal for him. relays that the patient had his tumors surgically removed [address] Morgan, but his new urologist had diagnosed him with more bladder tumors recently. Patient states he is experiencing associated suprapubic pressure, back pain, chills, and diarrhea. Patient denies any N/V, dysuria, flank pain, fever, or dizziness. Chief Complaint: Urinary Time Seen by MD: 08:43 Primary Care Provider: CASANDRA Dunn notes: Nurses Notes, Medications, Allergies Allergies: Coded Allergies: NO KNOWN ALLERGIES (Unverified , 12/02/22) Home Meds Active Scripts Ondansetron Odt 4MG Tab (ZOFRAN PO) 4 Mg Tb, 4 MG PO TID PRN, #30 TAB ODT TAB-DISSOLVE IN MOUTH, THEN SWALLOW Prov:TIARA RUFF MD 07/28/23 Ciprofloxacin Hcl (Cipro) 500 Mg Tab, 500 TAB PO BID, #20 TAB Prov:TIARA RUFF MD 07/28/23 Cefdinir (Cefdinir) 300 Mg Cap, 10 CAP PO BID, #20 CAP Prov:BJ BAILEY MD 01/20/23 Apixaban Base (ELIQUIS) 5 Mg Tab, 2.5 MG OR BID, #60 TAB Prov:BJ BAILEY MD 01/20/23 Amiodarone HCl (Amiodarone HCl) 200 Mg Tab, 200 MG PO BID, #60 TAB Prov:TIARA RUFF MD 12/14/22 Diltiazem Hcl (CARDIZEM IMMEDIATE RELEASE TAB) 60 Mg Tb, 60 MG GT Q6HR for 30 Days, #120 TAB Prov:TIARA RUFF MD 12/14/22 Apixaban Base (ELIQUIS) 5 Mg Tab, 5 MG PO BID for 30 Days, #60 TAB Prov:TIARA RUFF MD 12/14/22 Amlodipine Besylate (NORVASC TABLET) 5 Mg Tb, 10 MG PO DAILY for 30 Days, #60 TAB Prov:TIARA RUFF MD 7/8/23 Reported Medications Rosuvastatin Calcium (Rosuvastatin Calcium) 40 Mg Tab, 1 TAB PO DAILY 07/20/22 Metformin Hydrochloride (Metformin Hcl) 1,000 Mg Tab, 1000 MG PO BID, TAB 06/12/22 Multiple Vitamin (Multivitamin) 1 Tab Tab, 1 TAB PO DAILY, TAB 06/12/22 Finerenone (Kerendia) 10 Mg Tab, 1 TAB PO DAILY, TAB 06/12/22 Information Source: Patient, Spouse Mode of Arrival: Ambulatory Severity: Moderate Timing: Days Duration: Since onset Prehospital treatment: None Onset: Spontaneous Symptoms: Hematuria History of: Other (Bladder tumors) Location: Suprapubic Penile discharge: None Modifying factors: None associated signs and symptoms: Abdominal Pain, Back Pain, Hematuria Past Medical History PAST MEDICAL HISTORY: Cancer, CKF, COPD, DM, Gallstones, High Lipids, HTN, Kidney Stones, Thyroid Surgical History: Pacemaker Surgical History (Other): Bladder tumor removal Family History Family History: Reviewed,noncontributory to illness, Unknown Social History Smoker: Quit Greater Than 1 Year, Cigarettes Alcohol: Denies ETOH Use, Sober Drugs: Denies Drug Use Lives In: Home Constitutional: reports: chills; denies: diaphoresis, fatigue, fever, malaise, sweats, weakness, others EENTM: denies: blurred vision, double vision, ear bleeding, ear discharge, ear drainage, ear pain, ear ringing, eye pain, eye redness, hearing loss, mouth pain, mouth swelling, nasal discharge, nose bleeding, nose congestion, nose pain, photophobia, tearing, throat pain, throat swelling, voice changes, others Respiratory: denies: cough, hemoptysis, orthopnea, SOB at rest, shortness of breath, SOB with excertion, stridor, wheezing, others Cardiovascular: denies: chest pain, dizzy spells, diaphoresis, Dyspnea on exertion, edema, irregular heart beat, left arm pain, lightheadedness, p alpitations, PND, syncope, others Gastrointestinal: reports: abdominal pain, diarrhea; denies: abdomen distended, blood streaked bowels, constipated, dysphagia, difficulty swallowing, hemateme sis, melena, nausea, poor appetite, poor fluid intake, rectal bleeding, rectal pain, vomiting, others Genitourinary: reports: hematuria; denies: burning, dysuria, flank pain, frequency, incontinence, penile discharge, penile sore, pain, testicle pain, testicle swelling, urgency, others Neurological: denies: dizziness, fainting, headache, left sided numbness, left sided weakness, numbness, paresthesia, pre-existing deficit, right sided numbness, right sided weakness, seizure, speech problems, tingling, tremors, weakness, others Musculoskeletal: reports: back pain; denies: gout, joint pain, joint swelling, muscle pain, muscle stiffness, neck pain, others Integumetry: denies: bruises, change in color, change in hair/nails, dryness, laceration, lesions, lumps, rash, wounds, others Allergic/Immunocompromised: denies: Difficulty Healing, Frequent Infections, Hives, Itching, others Hematologic/Lymphatic: denies: anemia, blood clots, easy bleeding, easy bruising, swollen glands, others Endocrine: denies: excessive hunger, excessive sweating, excessive thirst, excessive urination, flushing, intolerance to cold, intolerance to heat, unexplained weight gain, unexplained weight loss, others Psychiatric: denies: anxiety, bipolar disorder, depression, hopeless, panic disorder, schizophrenia, sleepless, suicidal, others All Other Systems: Reviewed and Negative Physical Exam General Appearance: Moderate Distress HEENT: Normal ENT Inspection, Pharynx Normal, TMs Normal Neck: Full Range of Motion, Non-Tender, Normal, Normal Inspection Respiratory: Chest Non-Tender, Lungs Clear, No Accessory Muscle Use, No Respiratory Distress, Normal Breath Sounds Cardiovascular: No Edema, No JVD, No Murmur, No Gallop, Normal Peripheral Pulses, Regular Rate/Rhythm Breast Exam: Deferred Gastrointestinal: No Organomegaly, No Pulsatile Mass, Normal Bowel Sounds, Soft, Suprapubic, Tenderness Genitalia: Deferred Pelvic: Deferred Rectal: Deferred Extremities: No calf tenderness, Normal capillary refill, No pedal edema Musculoskeletal : Apperance: Normal Neurologic: 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 Was a procedure done?: No Differential Diagnosis Kidney stone (Female): N/A Kidney stone (Male): Pyelonephritis, Renal failure, Strain, Urinary tract infection, Other (Bladder cancer, bladder mass) X-Ray, Labs, Meds, VS Vital Signs Date Time Temp Pulse Resp B/P (MAP) Pulse Ox O2 Delivery O2 Flow Rate FiO2 02/08/25 08:11 97.8 100 18 150/57 65 97.8 Lab Test 02/08/25 08:50 02/08/25 08:30 Range/Units White Blood Count 5.2 4.4-10.8 10^3/uL Red Blood Count 4.07 L 4.5-5.90 10^6/uL Hemoglobin 11.4 L 13.5-17.5 g/dL Hematocrit 34.5 L 41.0-53.0 % Mean Corpuscular Volume 84.6 80.0-100.0 fL Mean Corpuscular Hemoglobin 28.0 28.0-32.0 pg Mean Corpuscular Hemoglobin Concent 33.0 32.0-36.0 g/dL Red Cell Distribution Width 15.2 H 11.8-14.3 % Platelet Count 90 L 140-450 10^3/uL Mean Platelet Volume 11.2 H 6.9-10.8 fL Neutrophils (%) (Auto) 54.2 37.0-80.0 % Lymphocytes (%) (Auto) 25.2 10.0-50.0 % Monocytes (%) (Auto) 17.5 H 0.0-12.0 % Eosinophils (%) (Auto) 1.9 0.0-7.0 % Basophils (%) (Auto) 1.2 0.0-2.0 % Neutrophils # (Auto) 2.8 1.6-8.6 10 ^3/uL Lymphocytes # (Auto) 1.3 0.4-5.4 10 ^3/uL Monocytes # (Auto) 0.9 0-1.3 10 ^3/uL Eosinophils # (Auto) 0.1 0-0.8 10 ^3/uL Basophils # (Auto) 0.1 0-0.2 10 ^3/uL Nucleated Red Blood Cells 0.1 % Prothrombin Time 11.9 H 9.3-11.8 sec Prothrombin Time INR 1.14 0.9-1.15 Activated Partial Thromboplast Time 38.5 H 24.5-34.5 SEC Sodium Level 137 136-145 mmol/L Potassium Level 5.2 H 3.5-5.1 mmol/L Chloride Level 105 98-107 mmol/L Carbon Dioxide Level 20 20-31 mmol/L Anion Gap 12 5-15 Blood Urea Nitrogen 33 H 9-23 mg/dL Creatinine 2.94 H 0.700-1.30 mg/dL Glomerular Filtration Rate Calc 21 >90 mL/min BUN/Creatinine Ratio 11.2 10.0-20.0 Serum Glucose 111 H 74-106 mg/dL Calcium Level 9.7 8.7-10.4 mg/dL Urine Color Light-red Yellow Urine Clarity Turbid H Clear Urine pH 5.5 5.0-9.0 Urine Specific [place] 1.011 1.001-1.035 Urine Protein 1+ H Negative Urine Ketones Negative Negative Urine Blood 3+ H Negative /uL Urine Nitrite Negative Negative Urine Bilirubin Negative Negative Urine Urobilinogen Normal Negative mg/dL Urine Leukocyte Esterase Trace Negative /uL Urine RBC 7075 0 - 3 /hpf Urine WBC Clumps Present None Seen /hpf Urine Microscopic WBC 120 H 0-3 /HPF Urine Squamous Epithelial Cells None seen <5 /hpf Urine Bacteria None seen None Seen /hpf Urine Mucus Few None Seen Urine Glucose Normal Normal mg/dL CAT scan of the abdomen and pelvis shows: IMPRESSION: 1. Mild interstitial prominence in the left lower lobe may be due to scarring, Reactive airways disease, or mild CHF. 2. Coronary artery disease and atherosclerotic vascular disease in the abdomen and pelvis. 3. Cholelithiasis. 4. Mild bilateral renal atrophy. 5. Mild prostatic enlargement. 6. 14 mm masslike lesion in the anterior aspect of the urinary bladder may r epresent neoplastic mass or hematoma. Recommend urology consultation for possible cystoscopy and direct visualization. Further imaging with CT urography may be useful. 7. Subacute appearing burst fracture of L1 as detailed above, new versus CT scan dated 07/28/2023. 8. No evidence of bowel obstruction, urinary tract obstruction, acute appendicitis, or other acute process in the abdomen or pelvis. IV Hep-Lock was established. The urine test is positive for a significant UTI The patient is being given Rocephin 1 g IV piggyback The CBC shows slight anemia with a hemoglobin of 11.4 and hematocrit of 34.5 The chemistry panel shows a potassium of 5.2 The BUN is 33 and the creatinine is 2.9 We are consulting with the urologist at this time The patient will be admitted We did speak with the urology data virtualization consultant and at this time the patient will be admitted. Images Reviewed?: Images reviewed and evaluated by me Time of 1ST Reevaluation: 09:49 Reevaluation 1ST: Unchanged Patient Education/Counseling: Diagnosis, Treatment, Prognosis Family Education/Counseling: Diagnosis, Treatment, Prognosis SEPSIS Sepsis Screen Date sepsis recognized/suspect: Feb 08, 2025 Time Sepsis recognized/suspect: 0811 Recent Procedure: No On Antibiotic Therapy: No Respiratory Rate >20: No Heart Rate >90: No Temp<36 C (96.8 F) or >38.3 C: No SBP <90 or MAP <65 mmHG: No New Acute Mental Status Change: No Is the patient on CPAP, BIPAP,: No Physician Orders Ct Ab Pel Wo Con-No Oral Or Iv (02/08/25 08:43) Heplock Iv (02/08/25 08:43) * Urology Consult (02/08/25 09:49) Brito Catheters (02/08/25 ) * Radiologist Consult (02/08/25 11:56) Vital Signs Date Time Temp Pulse Resp B/P (MAP) Pulse Ox O2 Delivery O2 Flow Rate FiO2 02/08/25 08:11 97.8 100 18 150/57 65 97.8 Laboratory Tests Test 02/08/25 08:50 White Blood Count 5.2 10^3/uL (4.4-10.8) Departure 1 Departure Time of Disposition: 09:48 Impression: Primary Impression: Bladder mass Additional Impressions: Acute cystitis Qualified Codes: N30.01 - Acute cystitis with hematuria Generalized weakness Anemia Qualified Codes: D64.9 - Anemia, unspecified Disposition: 09 ADMITTED INPATIENT Admit to: Med Surg Condition: Fair Critical Care Note Critical Care Time?: No Stability Stability form required: Yes Unstable for transfer: ED Physician Assesment (Clinical assesment) Heart Score Heart Score: Heart Score Response (Comments) Value History N/A 0 EKG N/A 0 Age N/A 0 Risk Factors N/A 0 Troponin N/A 0 Total 0 I personally scribed for CARTER BRANTLEY MD ([email or web address]) on 02/08/25 at 08:47. Electronically submitted by Joseph Brandt ([email or web address]). I personally scribed for CARTER BRANTLEY MD ([email or web address]) on 02/08/25 at 10:04. Electronically submitted by Joseph Brandt ([email or web address]). CARTER BRANTLEY MD Feb 08, 2025 08:47
[2025-02-08 09:13] LABS: Hematocrit 34.5 % (41.0-53.0); Hemoglobin 11.4 g/dL (13.5-17.5); Mean Corpuscular Hemoglobin 28.0 pg (28.0-32.0); Mean Corpuscular Volume 84.6 fL (80.0-100.0); Nucleated Red Blood Cells % 0.1 %
[2025-02-08 09:19] LABS: Chloride 105 mmol/L (98-107); Sodium 137 mmol/L (136-145)
[2025-02-08 09:20] LABS: Anion Gap 12 (5-15); Calcium 9.7 mg/dL (8.7-10.4)
[2025-02-08 09:21] LABS: Carbon Dioxide 20 mmol/L (20-31); Potassium 5.2 mmol/L (3.5-5.1)
[2025-02-08 09:25] LABS: BUN/Creatinine Ratio 11.2 (10.0-20.0)
[2025-02-08 09:29] LABS: INR 1.14 (0.9-1.15); Partial Thromboplastin Time 38.5 SEC (24.5-34.5); Prothrombin Time 11.9 sec (9.3-11.8)
[2025-02-08 09:30] LABS: Blood Urea Nitrogen 33 mg/dL (9-23); Glucose 111 mg/dL (74-106)
--- NOTE | 2025-02-08 09:42 | DVH ---
EXAM: CT CT AB PEL WO CON-NO ORAL OR IV HISTORY: hematuria COMPARISON: CT CT AB PEL WO CON-NO ORAL OR IV on DOS: 07/28/23, CT ABD PELVIS WO CONTRAST on DOS: 07/20, CT ABD PELVIS WO CONTRAST on DOS: 06/13/22 TECHNIQUE: Helical CT images of the abdomen and pelvis were performed without IV contrast. Sagittal a nd coronal reformatted images were obtained. This CT exam was performed using one or more of the foll owing dose reduction techniques: Automated exposure control, adjustment of the mA and/or kv according to patient size, or the use of iterative reconstruction techniques. Radiation Dose: Abdomen/Pelvis: CTDIvol 9.64 mGy, DLP 3.92 mGy*cm. FINDINGS: CT abdomen: There is mild elevation of the left hemidiaphragm. The left pericardial fat pad is promi nent. There is interstitial prominence of the left lower lobe. The heart is not enlarged. There are coronary artery calcifications. There is a left chest pacemaker. Gallstone is identified in the depe ndent portion of the gallbladder lumen. There is mild bilateral renal atrophy. The noncontrast liver , spleen, pancreas, and adrenal glands are unremarkable. No abdominal aortic aneurysm. There are athe rosclerotic calcifications of the abdominal aorta and major branches. 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 CT pelvis: No abnormal bowel dilatation, free air, or free fluid. The appendix is not dilated. There is suggestion of an ill-defined mass involving the urinary bladder anteriorly (image 77, series 2; im age 71, series 602) measuring 14 mm greatest dimension. The prostate is mildly enlarged. There are sm all bilateral fatty inguinal indirect hernias. There is a subacute appearing superior and inferior en dplate burst fracture of L1, new versus CT scan dated 07/28/2023, with 50% loss of height centrally, minimal loss of height posteriorly, 5 mm retropulsion of fragments (image 63, series 602). There is m [id number] Lumbar degenerative disc disease and facet arthropathy. There is mild osteoarthritis of the hips. IMPRESSION: 1. Mild interstitial prominence in the left lower lobe may be due to scarring, Reactive airways disea se, or mild CHF. 2. Coronary artery disease and atherosclerotic vascular disease in the abdomen and pelvis. 3. Cholelithiasis. 4. Mild bilateral renal atrophy. 5. Mild prostatic enlargement. 6. 14 mm masslike lesion in the anterior aspect of the urinary bladder may represent neoplastic mass or hematoma. Recommend urology consultation for possible cystoscopy and direct visualization. Furthe r imaging with CT urography may be useful. 7. Subacute appearing burst fracture of L1 as detailed above, new versus CT scan dated 07/28/2023. 8. No evidence of bowel obstruction, urinary tract obstruction, acute appendicitis, or other acute pr ocess in the abdomen or pelvis.
[2025-02-08 09:44] LABS: Urine Protein, UAD 1+ (Negative); Urine WBC Clumps PRESENT /hpf (None Seen)
--- NOTE | 2025-02-08 12:07 | DVHINCON2 ---
Date of service: Feb 08, 2025 Referring Physician hospitalist Reason for Consultation gross hematuria History of Present Illness History Source: Patient, Spouse/Significant Other, RN Notes, MD Notes, Old Records Exam Limitations: Language barrier HPI 79 yo male with known unresectable bladder cancer presents with gross hematuria. CT shows 14 mm anterior bladder wall mass. He is known to urology and was recommended to have radical cystectomy with urinary diversion but family decided on medical oncology at [facility]. Home Meds Active Scripts Ondansetron Odt 4MG Tab (ZOFRAN PO) 4 Mg Tb, 4 MG PO TID PRN, #30 TAB ODT TAB-DISSOLVE IN MOUTH, THEN SWALLOW Prov:TIARA RUFF MD 07/28/23 Ciprofloxacin Hcl (Cipro) 500 Mg Tab, 500 TAB PO BID, #20 TAB Prov:TIARA RUFF MD 07/28/23 Cefdinir (Cefdinir) 300 Mg Cap, 10 CAP PO BID, #20 CAP Prov:BJ BAILEY MD 01/20/23 Apixaban Base (ELIQUIS) 5 Mg Tab, 2.5 MG OR BID, #60 TAB Prov:BJ BAILEY MD 01/20/23 Amiodarone HCl (Amiodarone HCl) 200 Mg Tab, 200 MG PO BID, #60 TAB Prov:TIARA RUFF MD 12/14/22 Diltiazem Hcl (CARDIZEM IMMEDIATE RELEASE TAB) 60 Mg Tb, 60 MG GT Q6HR for 30 Days, #120 TAB Prov:TIARA RUFF MD 12/14/22 Apixaban Base (ELIQUIS) 5 Mg Tab, 5 MG PO BID for 30 Days, #60 TAB Prov:TIARA RUFF MD 12/14/22 Amlodipine Besylate (NORVASC TABLET) 5 Mg Tb, 10 MG PO DAILY for 30 Days, #60 TAB Prov:TIARA RUFF MD 12/14/22 Reported Medications Rosuvastatin Calcium (Rosuvastatin Calcium) 40 Mg Tab, 1 TAB PO DAILY 07/20/22 Metformin Hydrochloride (Metformin Hcl) 1,000 Mg Tab, 1000 MG PO BID, TAB 06/12/22 Multiple Vitamin (Multivitamin) 1 Tab Tab, 1 TAB PO DAILY, TAB 06/12/22 Finerenone (Kerendia) 10 Mg Tab, 1 TAB PO DAILY, TAB 06/12/22 Past Medical History Hemotology/Oncology: Anemia NOS, Cancer Patient Family History: Diabetes mellitus G8 MOTHER, Onset:Unknown Hypertension G8 FATHER, Onset:Unknown Review of Systems Genitourinary: Hematuria H&P Exam Vital Signs Vital Signs Date Time Temp Pulse Resp B/P (MAP) Pulse Ox O2 Delivery O2 Flow Rate FiO2 02/08/25 08:11 97.8 100 18 150/57 65 97.8 Labs/Xrays [place] [address] Ph: [phone] DIAGNOSTIC IMAGING Diagnostic Imaging Report : [id number] Signed PATIENT: SURI PINK ACCT: [id number] UNIT: [id number] : 1945 LOC: ER ROOM / BED: / AGE / SEX: 79 / M ADM STATUS: REG ER SERVICE [id number] ORDERING PHYSICIAN: CARTER BRANTLEY MD PROCEDURE(s): ABPL - CT AB PEL WO CON-NO ORAL OR IV REASON: hematuria ORDER NUMBER(s): [id number], ACCESSION NUMBER(s): [id number] EXAM: CT CT AB PEL WO CON-NO ORAL OR IV HISTORY: hematuria COMPARISON: CT CT AB PEL WO CON-NO ORAL OR IV on DOS: 07/28/23, CT ABD PELVIS WO CONTRAST on DOS: 07/20/22, CT ABD PELVIS WO CONTRAST on DOS: 06/13/22 TECHNIQUE: Helical CT images of the abdomen and pelvis were performed without IV contrast. Sagittal and coronal reformatted images were obtained. This CT exam was performed using one or more of the following dose reduction techniques: Automated exposure control, adjustment of the mA and/or kv according to patient size, or the use of iterative reconstruction techniques. Radiation Dose: Abdomen/Pelvis: CTDIvol 9.64 mGy, DLP 3.92 mGy*cm. FINDINGS: CT abdomen: There is mild elevation of the left hemidiaphragm. The left vamsi cardial fat pad is prominent. There is interstitial prominence of the left lower lobe. The heart is not enlarged. There are coronary artery calcifications. There is a left chest pacemaker. Gallstone is identified in the dependent portion of the gallbladder lumen. There is mild bilateral renal atrophy. The noncontrast liver, spleen, pancreas, and adrenal glands are unremarkable. No abdominal aortic aneurysm. There are atherosclerotic calcifications of the abdominal aorta and major branches. 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 CT pelvis: No abnormal bowel dilatation, free air, or free fluid. The appendix is not dilated. There is suggestion of an ill-defined mass involving the urinary bladder anteriorly (image 77, series 2; image 72, series 602) measuring 14 mm greatest dimension. The prostate is mildly enlarged. There are small bilateral fatty inguinal indirect hernias. There is a subacute appearing superior and inferior endplate burst fracture of L1, new versus CT scan dated 07/28/2023, with 50% loss of height centrally, minimal loss of height posteriorly, 5 mm retropulsion of fragments (image 63, series 602). There is [id number] Lumbar degenerative disc disease and facet arthropathy. There is mild osteoarthritis of the hips. IMPRESSION: 1. Mild interstitial prominence in the left lower lobe may be due to scarring, Reactive airways disease, or mild CHF. 2. Coronary artery disease and atherosclerotic vascular disease in the abdomen and pelvis. 3. Cholelithiasis. 4. Mild bilateral renal atrophy. 5. Mild prostatic enlargement. 6. 14 mm masslike lesion in the anterior aspect of the urinary bladder may represent neoplastic mass or hematoma. Recommend urology consultation for possible cystoscopy and direct visualization. Further imaging with CT urography may be useful. 7. Subacute appearing burst fracture of L1 as detailed above, new versus CT scan dated 07/28/2023. 8. No evidence of bowel obstruction, urinary tract obstruction, acute appendicitis, or other acute process in the abdomen or pelvis. ATED BY: LUCIE VALENCIA MD DICTATED DATE/TIME: 02/08/25939 SIGNED BY: LUCIE VALENCIA MD SIGNED DATE/TIME: 02/08/25939 CC: Labs Test 02/08/25 08:50 02/08/25 08:30 Range/Units White Blood Count 5.2 4.4-10.8 10^3/uL Red Blood Count 4.07 L 4.5-5.90 10^6/uL Hemoglobin 11.4 L 13.5-17.5 g/dL Hematocrit 34.5 L 41.0-53.0 % Mean Corpuscular Volume 84.6 80.0-100.0 fL Mean Corpuscular Hemoglobin 28.0 28.0-32.0 pg Mean Corpuscular Hemoglobin Concent 33.0 32.0-36.0 g/dL Red Cell Distribution Width 15.2 H 11.8-14.3 % Platelet Count 90 L 140-450 10^3/uL Mean Platelet Volume 11.2 H 6.9-10.8 fL Neutrophils (%) (Auto) 54.2 37.0-80.0 % Lymphocytes (%) (Auto) 25.2 10.0-50.0 % Monocytes (%) (Auto) 17.5 H 0.0-12.0 % Eosinophils (%) (Auto) 1.9 0.0-7.0 % Basophils (%) (Auto) 1.2 0.0-2.0 % Neutrophils # (Auto) 2.8 1.6-8.6 10 ^3/uL Lymphocytes # (Auto) 1.3 0.4-5.4 10 ^3/uL Monocytes # (Auto) 0.9 0-1.3 10 ^3/uL Eosinophils # (Auto) 0.1 0-0.8 10 ^3/uL Basophils # (Auto) 0.1 0-0.2 10 ^3/uL Nucleated Red Blood Cells 0.1 % Prothrombin Time 11.9 H 9.3-11.8 sec Prothrombin Time INR 1.14 0.9-1.15 Activated Partial Thromboplast Time 38.5 H 24.5-34.5 SEC Sodium Level 137 136-145 mmol/L Potassium Level 5.2 H 3.5-5.1 mmol/L Chloride Level 105 98-107 mmol/L Carbon Dioxide Level 20 20-31 mmol/L Anion Gap 12 5-15 Blood Urea Nitrogen 33 H 9-23 mg/dL Creatinine 2.94 H 0.700-1.30 mg/dL Glomerular Filtration Rate Calc 21 >90 mL/min BUN/Creatinine Ratio 11.2 10.0-20.0 Serum Glucose 111 H 74-106 mg/dL Calcium Level 9.7 8.7-10.4 mg/dL Urine Color Light-red Yellow Urine Clarity Turbid H Clear Urine pH 5.5 5.0-9.0 Urine Specific [place] 1.011 1.001-1.035 Urine Protein 1+ H Negative Urine Ketones Negative Negative Urine Blood 3+ H Negative /uL Urine Nitrite Negative Negative Urine Bilirubin Negative Negative Urine Urobilinogen Normal Negative mg/dL Urine Leukocyte Esterase Trace Negative /uL Urine RBC 7075 0 - 3 /hpf Urine WBC Clumps Present None Seen /hpf Urine Microscopic WBC 120 H 0-3 /HPF Urine Squamous Epithelial Cells None seen <5 /hpf Urine Bacteria None seen None Seen /hpf Urine Mucus Few None Seen Urine Glucose Normal Normal mg/dL Assessment/Plan Problem List: (1) H/O transurethral resection of bladder tumor (TURBT) (2) Anemia (3) Bladder cancer Plan consult IR for vesical artery embolization continue treatment outpt with [facility] Plan discussed with: Patient, Spouse, Other BANDAR BLANC NP Feb 08, 2025 12:07
[2025-02-08] MEDS ORDERED: MORPHINE SULFATE INJ 2 MG/ml SYRG IV PRN (12:15)
[2025-02-08] MEDS ORDERED: ACETAMINOPHEN 325 MG TAB PO PRN (12:15)
[2025-02-08] MEDS ORDERED: NITROGLYCERIN 0.4 MG SL TAB SL PRN (12:15)
[2025-02-08] MEDS ORDERED: HYDROcodone-ACET 5/325MG TAB PO PRN (12:15)
--- NOTE | 2025-02-08 12:15 | DVHHP2 ---
Admitting Diagnosis: Hematuria History of Present Illness HPI Patient is a 79-year-old male with past medical history of CKD, unresectable bladder malignancy was followed by urology who presents due to complaints of hematuria. In discussion with urology, patient was referred to [facility] and underwent a biopsy of the mass recently. Since then, patient complains of hematuria. His urologist, Dr. Morgan was consulted and case was discussed. They noted that his bladder was unresectable and recommended IR for embolization. Patient admitted for further medical management. Home Meds Active Scripts Ondansetron Odt 4MG Tab (ZOFRAN PO) 4 Mg Tb, 4 MG PO TID PRN, #30 TAB ODT TAB-DISSOLVE IN MOUTH, THEN SWALLOW Prov:TIARA RUFF MD 07/28/23 Ciprofloxacin Hcl (Cipro) 500 Mg Tab, 500 TAB PO BID, #20 TAB Prov:TIARA RUFF MD 07/28/23 Cefdinir (Cefdinir) 300 Mg Cap, 10 CAP PO BID, #20 CAP Prov:BJ BAILEY MD 01/20/23 Apixaban Base (ELIQUIS) 5 Mg Tab, 2.5 MG OR BID, #60 TAB Prov:BJ BAILEY MD 01/20/23 Amiodarone HCl (Amiodarone HCl) 200 Mg Tab, 200 MG PO BID, #60 TAB Prov:TIARA RUFF MD 12/14/22 Diltiazem Hcl (CARDIZEM IMMEDIATE RELEASE TAB) 60 Mg Tb, 60 MG GT Q6HR for 30 Days, #120 TAB Prov:TIARA RUFF MD 12/14/22 Apixaban Base (ELIQUIS) 5 Mg Tab, 5 MG PO BID for 30 Days, #60 TAB Prov:TIARA RUFF MD 12/14/22 Amlodipine Besylate (NORVASC TABLET) 5 Mg Tb, 10 MG PO DAILY for 30 Days, #60 TAB Prov:TIARA RUFF MD 12/14/22 Reported Medications Rosuvastatin Calcium (Rosuvastatin Calcium) 40 Mg Tab, 1 TAB PO DAILY 07/20/22 Metformin Hydrochloride (Metformin Hcl) 1,000 Mg Tab, 1000 MG PO BID, TAB 06/12/22 Multiple Vitamin (Multivitamin) 1 Tab Tab, 1 TAB PO DAILY, TAB 06/12/22 Finerenone (Kerendia) 10 Mg Tab, 1 TAB PO DAILY, TAB 06/12/22 Past Medical History Renal/: Other (bladder malignancy) Patient Family History: Diabetes mellitus G8 MOTHER, Onset:Unknown Hypertension G8 FATHER, Onset:Unknown Review of Systems Genitourinary: Hematuria H&P Exam Vital Signs Vital Signs Date Time Temp Pulse Resp B/P (MAP) Pulse Ox O2 Delivery O2 Flow Rate FiO2 02/08/25 08:11 97.8 100 18 150/57 65 97.8 General Appeara: Normal Appearance Pulmonary/Respiratory: Normal inspection Cardiovascular/Chest: Regular rate Neuro/Mental St: Alert SEPSIS Sepsis Screen Date sepsis recognized/suspect: Feb 08, 2025 Time Sepsis recognized/suspect: 810 Recent Procedure: No On Antibiotic Therapy: No Respiratory Rate >20: No Heart Rate >90: No Temp<36 C (96.8 F) or >38.3 C: No SBP <90 or MAP <65 mmHG: No New Acute Mental Status Change: No Is the patient on CPAP, BIPAP,: No Physician Orders Ct Ab Pel Wo Con-No Oral Or Iv (02/08/25 08:43) Heplock Iv (02/08/25 08:43) * Urology Consult (02/08/25 09:49) Eric Catheters (02/08/25 ) * Radiologist Consult (02/08/25 11:56) Admit (02/08/25 12:03) Code Status (02/08/25 12:03) Sodium Chloride 0.9% (02/08/25 12:15) Acetaminophen Tablet (Tylenol Tablet) (02/08/25 12:15) Hydrocodone-Acet 5/325mg Tab ([place] 5/32 (02/08/25 12:15) Npo (Nothing By Mouth) Diet (02/08/25 Lunch) Pt Request For Service (02/08/25 12:03) Nitroglycerin Sublingual (Ntrostat Subli (02/08/25 12:15) Morphine Sulfate Injection (02/08/25 12:15) Stat Ekg For Chest Pain (02/08/25 12:03) Notify Md Of Changes From Base (02/08/25 12:03) Telephony Engineer For 24 Hours (02/08/25 12:03) Emergency Dysrhythmia Protocol (02/08/25 12:03) Rhythm Strips Once Every Shift (02/08/25 12:03) Oxygen By Nasal Cannula (02/08/25 12:03) Ceftriaxone Ivpb Rocephin (02/09/25 10:00) Vital Signs Date Time Temp Pulse Resp B/P (MAP) Pulse Ox O2 Delivery O2 Flow Rate FiO2 02/08/25 08:11 97.8 100 18 150/57 65 97.8 Laboratory Tests Test 02/08/25 08:50 White Blood Count 5.2 10^3/uL (4.4-10.8) Labs/Xrays Labs Test 02/08/25 08:50 02/08/25 08:30 Range/Units White Blood Count 5.2 4.4-10.8 10^3/uL Red Blood Count 4.07 L 4.5-5.90 10^6/uL Hemoglobin 11.4 L 13.5-17.5 g/dL Hematocrit 34.5 L 41.0-53.0 % Mean Corpuscular Volume 84.6 80.0-100.0 fL Mean Corpuscular Hemoglobin 28.0 28.0-32.0 pg Mean Corpuscular Hemoglobin Concent 33.0 32.0-36.0 g/dL Red Cell Distribution Width 15.2 H 11.8-14.3 % Platelet Count 90 L 140-450 10^3/uL Mean Platelet Volume 11.2 H 6.9-10.8 fL Neutrophils (%) (Auto) 54.2 37.0-80.0 % Lymphocytes (%) (Auto) 25.2 10.0-50.0 % Monocytes (%) (Auto) 17.5 H 0.0-12.0 % Eosinophils (%) (Auto) 1.9 0.0-7.0 % Basophils (%) (Auto) 1.2 0.0-2.0 % Neutrophils # (Auto) 2.8 1.6-8.6 10 ^3/uL Lymphocytes # (Auto) 1.3 0.4-5.4 10 ^3/uL Monocytes # (Auto) 0.9 0-1.3 10 ^3/uL Eosinophils # (Auto) 0.1 0-0.8 10 ^3/uL Basophils # (Auto) 0.1 0-0.2 10 ^3/uL Nucleated Red Blood Cells 0.1 % Prothrombin Time 11.9 H 9.3-11.8 sec Prothrombin Time INR 1.14 0.9-1.15 Activated Partial Thromboplast Time 38.5 H 24.5-34.5 SEC Sodium Level 137 136-145 mmol/L Potassium Level 5.2 H 3.5-5.1 mmol/L Chloride Level 105 98-107 mmol/L Carbon Dioxide Level 20 20-31 mmol/L Anion Gap 12 5-15 Blood Urea Nitrogen 33 H 9-23 mg/dL Creatinine 2.94 H 0.700-1.30 mg/dL Glomerular Filtration Rate Calc 21 >90 mL/min BUN/Creatinine Ratio 11.2 10.0-20.0 Serum Glucose 111 H 74-106 mg/dL Calcium Level 9.7 8.7-10.4 mg/dL Urine Color Light-red Yellow Urine Clarity Turbid H Clear Urine pH 5.5 5.0-9.0 Urine Specific [place] 1.011 1.001-1.035 Urine Protein 1+ H Negative Urine Ketones Negative Negative Urine Blood 3+ H Negative /uL Urine Nitrite Negative Negative Urine Bilirubin Negative Negative Urine Urobilinogen Normal Negative mg/dL Urine Leukocyte Esterase Trace Negative /uL Urine RBC 7075 0 - 3 /hpf Urine WBC Clumps Present None Seen /hpf Urine Microscopic WBC 120 H 0-3 /HPF Urine Squamous Epithelial Cells None seen <5 /hpf Urine Bacteria None seen None Seen /hpf Urine Mucus Few None Seen Urine Glucose Normal Normal mg/dL Assessment/Plan Primary Diagnosis 1. Hematuria 2' Diagnosis/Co-morbidities 2. Bladder malignancy 3. CKD Plan: - Urology, Dr. Morgan consulted -Insert eric with strict I/O - NS with 75 mL/h - Ceftriaxone 1 g IV daily - Urine cultures ordered - Interventional radiology consulted for embolization of bladder malignancy - Avoid nephrotoxic medications given CKD - Daily CBC and BMP - Full code - SCDs for DVT prophylaxis Update: Patient left AMA before further workup could be completed. Plan discussed with: Patient LASHAWN CANALES Feb 08, 2025 12:15
[2025-02-08] MEDS: SODIUM CHLORIDE 0.9% 1,000 ML IV SCH (18:39)
== END 2025-02-08 22:49 | disposition left against medical advice (07) ==
LOC: ER 08:10 → OVERFLOW 12:03 → INTOOBSV 12:03
PROVIDERS: ADMIT Student in an Organized Health Care Education/Training Program; ATTEND Student in an Organized Health Care Education/Training Program
DX: C67.9 Malignant neoplasm of bladder, unspecified (principal); K80.20 Calculus of gallbladder without cholecystitis without obstruction; E11.22 Type 2 diabetes mellitus with diabetic chronic kidney disease; D64.9 Anemia, unspecified; R53.1 Weakness; J44.9 Chronic obstructive pulmonary disease, unspecified; I12.9 Hypertensive chronic kidney disease with stage 1 through stage 4 chronic kidney disease, or unspecified chronic kidney disease; N18.9 Chronic kidney disease, unspecified; I25.10 Atherosclerotic heart disease of native coronary artery without angina pectoris; Z79.01 Long term (current) use of anticoagulants; Z79.84 Long term (current) use of oral hypoglycemic drugs; Z87.442 Personal history of urinary calculi; Z87.891 Personal history of nicotine dependence; Z85.51 Personal history of malignant neoplasm of bladder; Z98.890 Other specified postprocedural states; Z79.899 Other long term (current) drug therapy
CPT/HCPCS: 36415; 74176; 80048; 81001; 85025; 85610; 85730; 99284; G0378

== ENCOUNTER 2025-05-09 08:40 | Emergency (ER) | payer OTHER ==
[~2025-05-09] VITALS: Ht 167.6 cm; Wt 69.0 kg
--- NOTE | 2025-05-09 08:58 | ED.PDOC ---
HPI (NEURO) HPI Comments 80 year old male with PMHx cancer, CKF, COPD, DM, HLD, HTN, thyroid disease presents to the ED with a chief complaint of LT sided facial drooping onset last night around 23:00. Patient states he began experiencing LT sided facial drooping since last night around 23:00. He is also experiencing blurry vision, dizziness, RT jaw pain, RT neck pain, dysphagia. He noticed he began experiencing intermittent LT side facial pain 3 days ago. Denies head injury, chest pain, shortness of breath, fever, chills, nausea, vomiting, diarrhea, dysuria. No other symptoms or modifying factors present at this time. Chief Complaint: Left Sided Weakness Time Seen by MD: 08:50 Primary Care Provider: CASANDRA Dunn Notes: Medications, Allergies Information Source: Patient, Relative Mode of Arrival: Ambulatory Severity: Moderate Headache Severity: None Timing: Hours Duration: Since onset Prehospital treatment: None Onset: At rest Circumstances: Spontaneous Symptoms: Other Before: Normal History of: DM Modifying factors: Nothing Past Medical History PAST MEDICAL HISTORY: Cancer, CKF, COPD, DM, Gallstones, High Lipids, HTN, Kidney Stones, Thyroid Surgical History: Pacemaker Family History Family History: Reviewed,noncontributory to illness, Unknown Social History Smoker: Quit Greater Than 1 Year, Cigarettes Alcohol: Denies ETOH Use, Sober Drugs: Denies Drug Use Lives In: Home Constitutional: denies: chills, diaphoresis, fatigue, fever, malaise, sweats, weakness, others EENTM: denies: blurred vision, double vision, ear bleeding, ear discharge, ear drainage, ear pain, ear ringing, eye pain, eye redness, hearing loss, mouth pain, mouth swelling, nasal discharge, nose bleeding, nose congestion, nose pain, photophobia, tearing, throat pain, throat swelling, voice changes, others Respiratory: denies: cough, hemoptysis, orthopnea, SOB at rest, shortness of breath, SOB with excertion, stridor, wheezing, others Cardiovascular: denies: chest pain, dizzy spells, diaphoresis, Dyspnea on exertion, edema, irregular heart beat, left arm pain, lightheadedness, palpitations, PND, syncope, others Gastrointestinal: reports: dysphagia; denies: abdomen distended, abdominal pain, blood streaked bowels, constipated, diarrhea, difficulty swallowing, hematemesis, melena, nausea, poor appetite, poor fluid intake, rectal bleeding, rectal pain, vomiting, others Genitourinary: denies: burning, dysuria, flank pain, frequency, hematuria, incontinence, penile discharge, penile sore, pain, testicle pain, testicle swelling, urgency, others Neurological: reports: others (LT sided facial drooping); denies: dizziness, fainting, headache, left sided numbness, left sided weakness, numbness, paresthesia, pre-existing deficit, right sided numbness, right sided weakness, seizure, speech problems, tingling, tremors, weakness Musculoskeletal: reports: neck pain (RT jaw pain), others; denies: back pain, gout, joint pain, joint swelling, muscle pain, muscle stiffness Integumetry: denies: bruises, change in color, change in hair/nails, dryness, laceration, lesions, lumps, rash, wounds, others Allergic/Immunocompromised: denies: Difficulty Healing, Frequent Infections, Hives, Itching, others Hematologic/Lymphatic: denies: anemia, blood clots, easy bleeding, easy bruising, swollen glands, others Endocrine: denies: excessive hunger, excessive sweating, excessive thirst, excessive urination, flushing, intolerance to cold, intolerance to heat, unexplained weight gain, unexplained weight loss, others Psychiatric: denies: anxiety, bipolar disorder, depression, hopeless, panic disorder, schizophrenia, sleepless, suicidal, others All Other Systems: Reviewed and Negative Physical Exam General Appearance: Moderate Distress, Normal HEENT: Normal ENT Inspection, Pharynx Normal, TMs Normal Neck: Full Range of Motion, Non-Tender, Normal, Normal Inspection Respiratory: Chest Non-Tender, Lungs Clear, No Accessory Muscle Use, No Respiratory Distress, Normal Breath Sounds Cardiovascular: No Edema, No JVD, No Murmur, No Gallop, Normal Peripheral Pulses, Regular Rate/Rhythm Breast Exam: Deferred Gastrointestinal: No Organomegaly, Non Tender, No Pulsatile Mass, Normal Bowel Sounds, Soft Genitalia: Deferred Pelvic: Deferred Rectal: Deferred Extremities: No calf tenderness, Normal capillary refill, Normal inspection, Normal range of motion, Non-tender, No pedal edema Musculoskeletal : Apperance: Normal Neurologic: Alert, Facial Droop Cerebellar Function: Normal Reflexes: Normal Skin: Dry, Normal Color, Warm Peripheral Pulses: 3+ Radial (R), 3+ Radial (L) Lymphatic: No Adenopathy EKG EKG : Pulse Rate (adult): 75 Cardiac Rhythm: NSR Was a procedure done? Was a procedure done?: No Differential Diagnosis (SZ) Seizure: Psychogenic Seizure, Closed Head Injury, CVA/TIA X-Ray, Labs, Meds, VS Vital Signs Date Time Temp Pulse Resp B/P (MAP) Pulse Ox O2 Delivery O2 Flow Rate FiO2 05/09/25 12:00 98.0 70 20 141/57 (85) 100 98.0 05/09/25 10:05 68 22 91/72 (78) 93 05/09/25 09:54 97.7 66 16 110/72 (85) 99 97.7 05/09/25 09:54 66 16 99 Room Air 05/09/25 08:58 75 05/09/25 08:55 75 05/09/25 08:42 97.2 64 18 140/68 99 97.2 Lab Test 05/09/25 12:27 05/09/25 10:02 05/09/25 09:41 05/09/25 09:04 Range/Units Troponin I High Sensitivity 15 14 15 </=54 ng/L Urine Color Colorless Yellow Urine Clarity Turbid H Clear Urine pH 5.5 5.0-9.0 Urine Specific [place] 1.011 1.001-1.035 Urine Protein 1+ H Negative Urine Ketones Negative Negative Urine Blood 3+ H Negative /uL Urine Nitrite Negative Negative Urine Bilirubin Negative Negative Urine Urobilinogen Normal Negative mg/dL Urine Leukocyte Esterase Trace Negative /uL Urine RBC 472 0 - 3 /hpf Urine Microscopic WBC 16 H 0-3 /HPF Urine Squamous Epithelial Cells Few <5 /hpf Urine Amorphous Crystals Few None Seen /hpf Urine Bacteria Few H None Seen /hpf Urine Mucus Few None Seen Urine Glucose Normal Normal mg/dL White Blood Count 4.5 4.4-10.8 10^3/uL Red Blood Count 4.29 L 4.5-5.90 10^6/uL Hemoglobin 11.5 L 13.5-17.5 g/dL Hematocrit 35.4 L 41.0-53.0 % Mean Corpuscular Volume 82.3 80.0-100.0 fL Mean Corpuscular Hemoglobin 26.7 L 28.0-32.0 pg Mean Corpuscular Hemoglobin Concent 32.4 32.0-36.0 g/dL Red Cell Distribution Width 16.0 H 11.8-14.3 % Platelet Count 84 L 140-450 10^3/uL Mean Platelet Volume 11.7 H 6.9-10.8 fL Neutrophils (%) (Auto) 52.9 37.0-80.0 % Lymphocytes (%) (Auto) 28.2 10.0-50.0 % Monocytes (%) (Auto) 16.9 H 0.0-12.0 % Eosinophils (%) (Auto) 0.6 0.0-7.0 % Basophils (%) (Auto) 1.4 0.0-2.0 % Neutrophils # (Auto) 2.4 1.6-8.6 10 ^3/uL Lymphocytes # (Auto) 1.3 0.4-5.4 10 ^3/uL Monocytes # (Auto) 0.8 0-1.3 10 ^3/uL Eosinophils # (Auto) 0 0-0.8 10 ^3/uL Basophils # (Auto) 0.1 0-0.2 10 ^3/uL Nucleated Red Blood Cells 0.1 % Platelet Estimate Decreased Large Platelets Few Sodium Level 140 136-145 mmol/L Potassium Level 4.0 3.5-5.1 mmol/L Chloride Level 109 H 98-107 mmol/L Carbon Dioxide Level 18 L 20-31 mmol/L Anion Gap 13 5-15 Blood Urea Nitrogen 41 H 9-23 mg/dL Creatinine 3.52 H 0.700-1.30 mg/dL Glomerular Filtration Rate Calc 17 >90 mL/min BUN/Creatinine Ratio 11.6 10.0-20.0 Serum Glucose 128 H 74-106 mg/dL Calcium Level 9.6 8.7-10.4 mg/dL Test 05/09/25 08:54 Range/Units POC Glucose 115 H 70-106 mg/dl Current Medications Medications (Trade) Dose Ordered Sig/June Route Start Time Stop Time Status Last Admin Methylprednisolone Sodium Succinate (Solu Medrol) 125 mg ONCE ONCE IV 05/09/25 09:00 05/09/25 09:02 DC 05/09/25 10:45 Patient alert. Complaining of having a facial droop. All started three days ago. Vitals stable. Answering questions. Saturation pristine on room air. Heart rate within normal limits. EKG reviewed does show paced rhythm. Has risk factors. Was given steroid. Explained to the family. Continue monitoring. [address] [address] Ph: [phone] DIAGNOSTIC IMAGING Diagnostic Imaging Report : [id number] Signed PATIENT: SURI PINK ACCT: [id number] UNIT: [id number] : 1945 LOC: ER ROOM / BED: / AGE / SEX: 80 / M ADM STATUS: REG ER SERVICE 0850 ORDERING PHYSICIAN: QUE HERNANDEZ MD PROCEDURE(s): HWOCT - HEAD WITHOUT CONTRAST REASON: tia ORDER NUMBER(s): [id number], ACCESSION NUMBER(s): [id number] EXAM: CT HEAD WITHOUT CONTRAST INDICATION: tia TECHNIQUE: CT of the head without intravenous contrast. Radiation Dose : 1. Head: CT Dose: CTDI volume is 57 mGy. Dose-length product is 1125.4 mGy*cm The dose indicators for CT are the volume Computed Tomography (CT) Dose Index (CTDIvol) and the Dose Length Product (DLP), and are measured in units of mGy and mGy-cm, respectively. These indicators are not patient dose, but values generated from the CT scanner acquisition factors. The report includes radiation exposure data for exposures received during this examination. COMPARISON: None FINDINGS: There is no evidence of acute intracranial hemorrhage, extra-axial collection, mass effect, midline shift, herniation or hydrocephalus. The ventricles, sulci and cisterns are age appropriate. The bella-white differentiation is intact. Patchy periventricular and subcortical white matter hypoattenuation is nonspecific but may be related to small vessel ischemic disease. The visualized paranasal sinuses and mastoid air cells are clear. The surrounding soft tissues and osseous structures are unremarkable. IMPRESSION: No acute intracranial abnormality. Radiation optimization: All CT scans at this facility use at least one of these dose optimization techniques: automated exposure control mA and/or kV adjustment per patient size (includes targeted exams where dose is matched to clinical indication) or iterative reconstruction. ATED BY: ALO LOBO MD DICTATED DATE/TIME: 05/09/25955 SIGNED BY: ALO LOBO MD SIGNED DATE/TIME: 05/09/2556 CC: Time of 1ST Reevaluation: 09:20 Reevaluation 1ST: Unchanged Patient Education/Counseling: Diagnosis, Treatment, Prognosis Family Education/Counseling: Diagnosis, Treatment, Prognosis Departure 1 Departure Time of Disposition: 09:00 Impression: Primary Impression: Frost's palsy Additional Impression: TIA (transient ischemic attack) Disposition: ADMITTED INPATIENT Admit to: Med Surg Condition: Guarded Critical Care Note Critical Care Time?: Yes (90 min-critical care time only) Stability Stability form required: No Heart Score Heart Score: Heart Score Response (Comments) Value History Slightly Suspicious 0 EKG Normal 0 Age >65 2 Risk Factors >3 or Hx ASHD 2 Troponin Normal limit 0 Total 4 I personally scribed for QUE HERNANDEZ MD ([email or web address]) on 05/09/25 at 08:58. Electronically submitted by Susan Brown ([email or web address]). I personally scribed for QUE HERNANDEZ MD ([email or web address]) on 05/09/25 at 10:07. E lectronically submitted by Susan Brown ([email or web address]). QUE HERNANDEZ MD May 09, 2025 08:58
[2025-05-09 09:25] LABS: Hematocrit 35.4 % (41.0-53.0); Hemoglobin 11.5 g/dL (13.5-17.5); Mean Corpuscular Hemoglobin 26.7 pg (28.0-32.0); Mean Corpuscular Volume 82.3 fL (80.0-100.0); Nucleated Red Blood Cells % 0.1 %
[2025-05-09 09:27] LABS: Potassium 4.0 mmol/L (3.5-5.1); Sodium 140 mmol/L (136-145)
[2025-05-09 09:28] LABS: Anion Gap 13 (5-15); Calcium 9.6 mg/dL (8.7-10.4)
[2025-05-09 09:33] LABS: BUN/Creatinine Ratio 11.6 (10.0-20.0)
[2025-05-09 09:40] LABS: Blood Urea Nitrogen 41 mg/dL (9-23); Carbon Dioxide 18 mmol/L (20-31); Chloride 109 mmol/L (98-107); Glucose 128 mg/dL (74-106)
[2025-05-09 09:55] LABS: Urine Amorphous Crystal FEW /hpf (None Seen); Urine Protein, UAD 1+ (Negative)
--- NOTE | 2025-05-09 09:59 | DVH ---
EXAM: CT HEAD WITHOUT CONTRAST INDICATION: tia TECHNIQUE: CT of the head without intravenous contrast. Radiation Dose : 1. Head: CT Dose: CTDI volume is 57 mGy. Dose-length product is 1125.4 mGy*cm The dose indicators for CT are the volume Computed Tomography (CT) Dose Index (CTDIvol) and the Dose Length Product (DLP), and are measured in units of mGy and mGy-cm, respectively. These indicators are not patient dose, but values generated from the CT scanner acquisition factors. The report includes radiation exposure data for exposures received during this examination. COMPARISON: None FINDINGS: There is no evidence of acute intracranial hemorrhage, extra-axial collection, mass effect, midline shift, herniation or hydrocephalus. The ventricles, sulci and cisterns are age appropriate. The bella-white differentiation is intact. Patchy periventricular and subcortical white matter hypoattenuation is nonspecific but may be related to small vessel ischemic disease. The visualized paranasal sinuses and mastoid air cells are clear. The surrounding soft tissues and osseous structures are unremarkable. IMPRESSION: No acute intracranial abnormality. Radiation optimization: All CT scans at this facility use at least one of these dose optimization techniques: automated exposure control mA and/or kV adjustment per patient size (includes targeted exams where dose is matched to clinical indication) or iterative reconstruction.
[2025-05-09] MEDS: methylPREDNISolone SOD SUCC 125 MG/2 ML VL IV ONE (10:45)
--- NOTE | 2025-05-09 10:53 | ECG ---
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
[2025-05-09] MEDS ORDERED: PRED20TA2 PO (15:19)
--- NOTE | 2025-05-09 15:48 | DVHDS2 ---
Discharge Summary Date of Admission Date of Discharge: May 09, 2025 Labs/Diagnostic Data: Laboratory Results Test 05/09/25 12:27 05/09/25 09:41 05/09/25 09:04 05/09/25 08:54 Troponin I High Sensitivity 15 ng/L (</=54) Urine Color Colorless (Yellow) Urine Clarity Turbid (Clear) Urine pH 5.5 (5.0-9.0) Urine Specific Colon 1.011 (1.001-1.035) Urine Protein 1+ (Negative) Urine Ketones Negative (Negative) Urine Blood 3+ /uL (Negative) Urine Nitrite Negative (Negative) Urine Bilirubin Negative (Negative) Urine Urobilinogen Normal mg/dL (Negative) Urine Leukocyte Esterase Trace /uL (Negative) Urine RBC 472 /hpf (0 - 3) Urine Microscopic WBC 16 /HPF (0-3) Urine Squamous Epithelial Cells Few /hpf (<5) Urine Amorphous Crystals Few /hpf (None Seen) Urine Bacteria Few /hpf (None Seen) Urine Mucus Few (None Seen) Urine Glucose Normal mg/dL (Normal) White Blood Count 4.5 10^3/uL (4.4-10.8) Red Blood Count 4.29 10^6/uL (4.5-5.90) Hemoglobin 11.5 g/dL (13.5-17.5) Hematocrit 35.4 % (41.0-53.0) Mean Corpuscular Volume 82.3 fL (80.0-100.0) Mean Corpuscular Hemoglobin 26.7 pg (28.0-32.0) Mean Corpuscular Hemoglobin Concent 32.4 g/dL (32.0-36.0) Red Cell Distribution Width 16.0 % (11.8-14.3) Platelet Count 84 10^3/uL (140-450) Mean Platelet Volume 11.7 fL (6.9-10.8) Neutrophils (%) (Auto) 52.9 % (37.0-80.0) Lymphocytes (%) (Auto) 28.2 % (10.0-50.0) Monocytes (%) (Auto) 16.9 % (0.0-12.0) Eosinophils (%) (Auto) 0.6 % (0.0-7.0) Basophils (%) (Auto) 1.4 % (0.0-2.0) Neutrophils # (Auto) 2.4 10 ^3/uL (1.6-8.6) Lymphocytes # (Auto) 1.3 10 ^3/uL (0.4-5.4) Monocytes # (Auto) 0.8 10 ^3/uL (0-1.3) Eosinophils # (Auto) 0 10 ^3/uL (0-0.8) Basophils # (Auto) 0.1 10 ^3/uL (0-0.2) Nucleated Red Blood Cells 0.1 % Platelet Estimate Decreased Large Platelets Few Sodium Level 140 mmol/L (136-145) Potassium Level 4.0 mmol/L (3.5-5.1) Chloride Level 109 mmol/L (98-107) Carbon Dioxide Level 18 mmol/L (20-31) Anion Gap 13 (5-15) Blood Urea Nitrogen 41 mg/dL (9-23) Creatinine 3.52 mg/dL (0.700-1.30) Glomerular Filtration Rate Calc 17 mL/min (>90) BUN/Creatinine Ratio 11.6 (10.0-20.0) Serum Glucose 128 mg/dL (74-106) Calcium Level 9.6 mg/dL (8.7-10.4) POC Glucose 115 mg/dl (70-106) Other Laboratory Tests 05/09/25 09:04 Brief Hx & Hospital Course: Patient is a 80-year-old male with past medical history of CKD, COPD, type 2 diabetes, hypertension who presents due to complaints of left-sided facial droop that began last night at approximately 3 AM with associated left ear pain, dysphagia, and associated facial pain that progressively worsened over the past 3 days. On arrival to the ER, no dysarthria was noted. There was no slurred speech. There was no focal deficits in the upper or lower extremities. CT brain without contrast was done which did not reveal any acute intracranial abnormality. CBC was done which did not reveal any leukocytosis. BMP was consistent with patient's history of CKD with BUN/creatinine 41/3.52. Troponin was nonelevated. Patient was monitored for several hours and vitals were noted to remain within normal limits. 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 He will be discharged on a prednisone tapering dose starting with 60 mg daily for 7 days followed by a tapering regimen. Patient will be referred to neurology outpatient for follow-up. Patient given ER return precautions. [facility] case management to arrange follow-up appointments. Condition at Discharge: Good Final Diagnosis/Problems List Frost's Palsy Secondary Diagnosis: CKD Discharge Disposition: Home Discharge Instruct/Medications Diet: Renal Activity: No Restrictions, As Tolerated Follow Up/Referral: Follow up with neurology. [facility] Case Management will contact you for appointment. Medications: Prednisone tapering dose for Frost's Palsy. Start taking on 05/10. Scheduled Amiodarone HCl (Amiodarone HCl), 200 MG PO BID Amlodipine Besylate (Norvasc Tablet), 10 MG PO DAILY Apixaban Base (Eliquis), 5 MG PO BID Apixaban Base (Eliquis), 2.5 MG OR BID Cefdinir (Cefdinir), 10 CAP PO BID Ciprofloxacin Hcl (Cipro), 500 TAB PO BID Diltiazem Hcl (Cardizem Immediate Release Tab), 60 MG GT Q6HR Finerenone (Kerendia), 1 TAB PO DAILY, (Reported) Metformin Hydrochloride (Metformin Hcl), 1,000 MG PO BID, (Reported) Multiple Vitamin (Multivitamin), 1 TAB PO DAILY, (Reported) Prednisone (Prednisone), 20 MG PO DAILY Rosuvastatin Calcium (Rosuvastatin Calcium), 1 TAB PO DAILY, (Reported) Scheduled PRN Ondansetron Odt 4MG Tab (Zofran Po), 4 MG PO TID PRN Discharge Statement: "Patient was advised to return to the ER or call 911 if any headaches, dizziness, shortness of breath, chest pain, abdominal pain, bleeding, fevers, or worsening of medical condition. Patient was counseled about treatment plan, medications, possible side effects, patientverbalized understanding. All questions were answered to the best of my ability. This discharge took greater then 30 minutes in planning, reviewing documentation, counseling the patient, and discussing with other team members." ASSESSMENT ASSESSMENT Assessment Frost's Palsy LASHAWN CANALES DO May 09, 2025 15:48
[2025-05-09 19:51] VITALS: PULSE 99; RESP 26; O2SAT 99
[2025-05-10 06:00] VITALS: TEMP 98.2
[2025-05-10 09:11] VITALS: BP 132/76; PULSE 98; RESP 20; O2SAT 98
[2025-05-10 10:36] LABS: Hemoglobin 11.3 g/dL (13.5-17.5); Mean Corpuscular Volume 81.5 fL (80.0-100.0); Nucleated Red Blood Cells % 0.0 %
[2025-05-10 10:38] LABS: Potassium 4.1 mmol/L (3.5-5.1); Sodium 141 mmol/L (136-145)
[2025-05-10 10:39] LABS: Anion Gap 15 (5-15); Calcium 10.1 mg/dL (8.7-10.4); Hematocrit 34.3 % (41.0-53.0); Mean Corpuscular Hemoglobin 27.0 pg (28.0-32.0)
[2025-05-10 10:41] LABS: Carbon Dioxide 17 mmol/L (20-31); Chloride 109 mmol/L (98-107)
[2025-05-10 10:44] LABS: BUN/Creatinine Ratio 13.4 (10.0-20.0)
[2025-05-10 10:46] LABS: Blood Urea Nitrogen 45 mg/dL (9-23); Glucose 238 mg/dL (74-106)
== END 2025-05-10 11:27 | disposition home or self-care (01) ==
LOC: ER 08:40
DX: G45.9 Transient cerebral ischemic attack, unspecified (principal); G51.0 Bell's palsy; I12.9 Hypertensive chronic kidney disease with stage 1 through stage 4 chronic kidney disease, or unspecified chronic kidney disease; E11.22 Type 2 diabetes mellitus with diabetic chronic kidney disease; N18.9 Chronic kidney disease, unspecified; E78.5 Hyperlipidemia, unspecified; J44.9 Chronic obstructive pulmonary disease, unspecified; Z95.0 Presence of cardiac pacemaker; Z79.01 Long term (current) use of anticoagulants; Z79.52 Long term (current) use of systemic steroids; Z79.84 Long term (current) use of oral hypoglycemic drugs; Z79.899 Other long term (current) drug therapy
CPT/HCPCS: 36415; 70450; 80048; 81001; 82962; 84484; 85025; 93005; 96374; 99291; 99292; J2919